=== PATIENT | female | born 1985 | race Caucasian/White ===

== ENCOUNTER 2022-05-14 21:25 | Inpatient (IN) | payer MEDICAID, OTHER ==
[2022-05-14 21:43] LABS: Actual Bicarbonate (HCO3v) 3 mEq/L (22-28); Calcium, Ionized (venous) 1.34 mmol/L (1.16-1.32); Chloride (VBG) 91 mmol/L (98-106); Critical Notified Whom: DURRI; Hemoglobin (Hb) 12.7 g/dL (11.7-15.5); Potassium (VBG) 5.58 mmol/L (3.70-5.30); Puncture Site Other Site; Sodium 127.5 mmol/L (133-146); pH (venous) 6.74 (7.32-7.43)
[2022-05-14 21:48] LABS: Hemoglobin 11.6 g/dL (12.0-15.5); MDiff Complete? YES; Mean Corpuscular HGB CONC 31.4 g/dL (32.0-36.0); Mean Corpuscular Hemoglobin 30.5 pg (27.0-33.0); Mean Corpuscular Volume 97.1 fl (81.6-98.3); Mean Platelet Volume 10.6 fl (7.4-10.4); Platelet Count 466 10x3/uL (150-450); RBC Distribution Width 13.2 % (11.5-14.5); White Blood Cell (WBC) Count 39.1 10x3/uL (3.5-10.5)
[2022-05-14 21:55] LABS: Phosphorus 7.8 mg/dL (2.3-4.7)
[2022-05-14 21:57] LABS: Acetaminophen Less than 10.0 mcg/mL (10.0-30.0); Alcohol Less than 10 mg/dL (Less than 10); CK (CPK) 27 U/L (29-168); Magnesium 3.5 mg/dL (1.6-2.6); Salicylate Less than 8.0 mg/dL (15.0-30.0)
[2022-05-14 21:58] LABS: AST (SGOT) 9 U/L (5-34); Bilirubin, Total 0.2 mg/dL (0.2-1.2); Calcium 9.7 mg/dL (7.8-10.44); Chloride 88 mmol/L (98-107); Potassium 5.9 mmol/L (3.5-5.1); Sodium 124 mmol/L (136-145)
[2022-05-14 22:04] LABS: Bilirubin Neg (Negative); Blood, Urine 250 (Negative); Clarity Clear (Clear); Glucose, Urine (Dipstick) >=1000 mg/dL (Negative); Ketone, Urine 150 mg/dL (Negative); Leukocyte Negative (Negative); Nitrite Negative (Negative); Protein, Urine (Dipstick) 100 mg/dl (Neg-Trace); Urobilinogen Normal mg/dL (Less than 2)
[2022-05-14 22:06] LABS: Pregnancy Test - Urine (BHCG) Negative (Negative); Pregu Control Background? CLEAR/WHITE (CLR/WHITE); Pregu Control Bar Appear? YES (CONTROL BAR)
[2022-05-14] MEDS ORDERED: INSULIN REGULAR IN 0.9 % NACL 100 UNIT/100 ML BAG ONE (22:07)
[2022-05-14] MEDS ORDERED: Insulin Regular 300 UNITS/3 ML VIAL ONE (22:07)
[2022-05-14 22:11] LABS: Amphetamine Not Detected (NotDetected); Barbiturates Screen Not Detected (NotDetected); Benzodiazepine Screen Not Detected (NotDetected); Cocaine Metabolite Screen Not Detected (NotDetected); Methadone Not Detected (NotDetected); Methamphetamine Not Detected (NotDetected); Opiate Screen Not Detected (NotDetected); Oxycodone Screen Not Detected (NotDetected); Phencyclidine (PCP) Not Detected (NotDetected); THC/Cannabinoid Screen Not Detected (NotDetected); Tricyclic Screen Not Detected (NotDetected)
[2022-05-14] MEDS ORDERED: cefTRIAXone\\ROCEPHIN 2 GM VIAL ONE (22:12)
[2022-05-14 22:16] LABS: Bacteria/HPF 1+ HPF (None Seen); WBC/HPF 0-3 HPF (0-3)
[2022-05-14] MEDS ORDERED: SODIUM BICARBONATE IV SCH (22:30)
[2022-05-14] MEDS ORDERED: STERILE WATER IV SCH (22:30)
[2022-05-14 22:35] LABS: ALT (SGPT) 13 U/L (8-55); Alkaline Phosphatase 140 U/L (40-110); BUN (Urea Nitrogen) 61 mg/dL (7.0-18.7); Calc. Creatinine Clearance 0 mL/min (70-130); Carbon Dioxide Less than 8 mmol/L (22-29); Estimated GFR 23
[2022-05-14 22:40] LABS: Band 6 % (5-11); Lymphocytes 6 % (21-51); Metamyelocyte 5 % (0-0); Monocytes 4 % (0-10); Neutrophil 78 % (42-75); Reactive Lymphocytes 1 % (0-10)
[2022-05-14 22:41] LABS: SARS-CoV-2 NAA Rapid Test Not Detected (NotDetected)
[2022-05-14 22:41] LABS: Platelet Morphology Comment Appears Increased
[2022-05-14 22:51] LABS: Glucose POC Confirmation 738 mg/dl (70-105)
[2022-05-14 22:52] LABS: Glucose 883 mg/dL (70-105)
[2022-05-14] MEDS ORDERED: Cefepime 2 GM VIAL ONE (23:44)
[2022-05-14] MEDS ORDERED: Sodium Chloride 0.9% 1,000 ML IV SCH (23:45)
[2022-05-14] MEDS ORDERED: NS 0.9% w/ 20 MEQ KCL 1,000 ML IV PRN (23:53)
[2022-05-14] MEDS ORDERED: Dextrose 5 %-0.45 % NaCl 1,000 ML IV PRN (23:53)
[2022-05-14] MEDS ORDERED: Sodium Chloride 0.9% 1,000 ML IV PRN ×4 (23:53)
[2022-05-14] MEDS ORDERED: Electrolyte Replacement Protocol IVPB PRN (23:53)
[2022-05-15 00:11] LABS: Glucose POC Confirmation 704 mg/dl (70-105)
[2022-05-15] MEDS ORDERED: Vancomycin HCl 1 GM in Sodium Chloride 0.9% 250 ML 250 ML IVPB SCH (00:30)
[2022-05-15 00:38] LABS: BUN (Urea Nitrogen) 57 mg/dL (7.0-18.7); Calc. Creatinine Clearance 0 mL/min (70-130); Calcium 7.1 mg/dL (7.8-10.44); Carbon Dioxide Less than 8 mmol/L (22-29); Chloride 103 mmol/L (98-107); Estimated GFR 36; Glucose 713 mg/dL (70-105); Magnesium 2.4 mg/dL (1.6-2.6); Potassium 4.2 mmol/L (3.5-5.1); Sodium 132 mmol/L (136-145)
[2022-05-15 00:39] LABS: Phosphorus 5.1 mg/dL (2.3-4.7)
[2022-05-15] MEDS ORDERED: NS 0.9% w/ 20 MEQ KCL 0 ML ONE (00:46)
[2022-05-15] MEDS: NS 0.9% w/ 20 MEQ KCL 1,000 ML IV PRN ×2 (00:49→04:58)
[2022-05-15] MEDS ORDERED: Calcium Gluconate 4.6 MEQ in Sodium Chloride 0.9% 100 ML IVPB SCH (01:00)
[2022-05-15] MEDS ORDERED: Cefepime 2 GM in Sodium Chloride 0.9% 100 ML IVPB SCH (01:00)
[2022-05-15] MEDS ORDERED: Calcium Gluc 4.6 MEQ/10 ML (100 MG/ML) ONE (01:04)
[2022-05-15 01:15] LABS: Glucose 700 mg/dL (70-105)
[2022-05-15 02:34] LABS: Glucose POC Confirmation 643 mg/dl (70-105)
[2022-05-15] MEDS ORDERED: Lorazepam 2 MG/ML VIAL ONE (04:18)
[2022-05-15] MEDS ORDERED: Ondansetron PF 4 MG/2 ML Vial ONE (04:18)
[2022-05-15] MEDS: Lorazepam 2 MG/ML VIAL SLOW IVP PRN ×3 (04:24→20:08)
[2022-05-15] MEDS ORDERED: NS 0.9% w/ 20 MEQ KCL 1,000 ML ONE (05:00)
[2022-05-15 06:03] LABS: BUN (Urea Nitrogen) 57 mg/dL (7.0-18.7); Calc. Creatinine Clearance 0 mL/min (70-130); Calcium 7.8 mg/dL (7.8-10.44); Chloride 112 mmol/L (98-107); Estimated GFR 35; Glucose 451 mg/dL (70-105); Magnesium 2.3 mg/dL (1.6-2.6); Potassium 3.8 mmol/L (3.5-5.1); Sodium 137 mmol/L (136-145)
[2022-05-15 06:04] LABS: Mean Corpuscular HGB CONC 33.4 g/dL (32.0-36.0); Mean Corpuscular Volume 92.6 fl (81.6-98.3); Mean Platelet Volume 10.3 fl (7.4-10.4); Platelet Count 284 10x3/uL (150-450); Red Blood Cell (RBC) Count 3.23 10x6/uL (3.90-5.03); White Blood Cell (WBC) Count 22.2 10x3/uL (3.5-10.5)
[2022-05-15 06:06] LABS: Carbon Dioxide Less than 8 mmol/L (22-29)
[2022-05-15 06:10] LABS: Troponin I 0.093 ng/mL (< 0.028)
[2022-05-15] MEDS ORDERED: Insulin Regular 300 UNITS/3 ML VIAL IVP SCH (06:15)
[2022-05-15 06:23] LABS: Actual Bicarbonate (HCO3v) 7 mEq/L (22-28); Base Excess -18.8 mEq/L (-2.0 to +3.0); Calcium, Ionized (venous) 1.09 mmol/L (1.16-1.32); Chloride (VBG) 112 mmol/L (98-106); Potassium (VBG) 3.94 mmol/L (3.70-5.30); Puncture Site Other Site; Sodium 137.3 mmol/L (133-146)
[2022-05-15 06:32] LABS: RapidComm Collect By CBN
[2022-05-15] MEDS ORDERED: Potassium Phosphate 22 MMOL in Sodium Chloride 0.9% 250 ML 250 ML IVPB SCH (07:30)
[2022-05-15 07:31] LABS: MDiff Complete? YES
[2022-05-15 07:32] LABS: Lymphocytes 11 % (21-51); Monocytes 7 % (0-10); Neutrophil 82 % (42-75)
[2022-05-15 07:33] LABS: Platelet Morphology Comment Appears Adequate; RBC Morphology Normal
[2022-05-15] MEDS: Pantoprazole 40 MG VIAL IVP SCH (08:54)
[2022-05-15] MEDS: Enoxaparin Sodium 40 MG/0.4 ML SYRINGE SC SCH (08:55)
[2022-05-15 09:29] LABS: Anion Gap 19 mmol/L (10-20); BUN (Urea Nitrogen) 56 mg/dL (7.0-18.7); Calc. Creatinine Clearance 0 mL/min (70-130); Calcium 7.9 mg/dL (7.8-10.44); Chloride 118 mmol/L (98-107); Estimated GFR 37; Glucose 251 mg/dL (70-105); Potassium 3.7 mmol/L (3.5-5.1); Sodium 142 mmol/L (136-145)
[2022-05-15] MEDS ORDERED: Lactated Ringer's 500 ML IV SCH (09:30)
[2022-05-15 09:37] LABS: Troponin I 0.178 ng/mL (< 0.028)
[2022-05-15 09:41] LABS: Carbon Dioxide 9 mmol/L (22-29); Phosphorus 1.2 mg/dL (2.3-4.7)
[2022-05-15] MEDS: D5 1/2 NS w/20 mEq KCL 1,000 ML IV PRN ×3 (09:45→18:31)
[2022-05-15 10:07] LABS: INR-International Normal Ratio 0.9; PTT 28.8 sec (22.0-33.0); Prothrombin Time 9.9 sec (9.5-12.1)
[2022-05-15 10:22] LABS: Syphilis Antibody Nonreactive (Nonreactive); Syphilis Antibody Index 0.14 S/CO (<1.00 Non-Reactive)
[2022-05-15 10:23] LABS: HIV (1/2) Antibody/Antigen Non-Reactive (NonReactive)
[2022-05-15 10:41] VITALS: BMI 22.1
[2022-05-15] MEDS ORDERED: PHOS-NAK 1 PKT PACK PO SCH (11:00)
[2022-05-15] MEDS: Nicotine 14 MG PATCH TD SCH (11:27)
[2022-05-15] MEDS ORDERED: Ondansetron ODT 4 MG TAB PO PRN (11:47)
[2022-05-15] MEDS ORDERED: Ondansetron PF 4 MG/2 ML Vial IVP PRN (11:47)
[2022-05-15 12:37] LABS: Hemoglobin A1c Greater than 14.0 % (4.0-6.0)
[2022-05-15] MEDS ORDERED: Lactated Ringer's 1,000 ML IV SCH (12:45)
[2022-05-15 13:12] LABS: Anion Gap 14 mmol/L (10-20); BUN (Urea Nitrogen) 52 mg/dL (7.0-18.7); Calc. Creatinine Clearance 40 mL/min (70-130); Calcium 7.6 mg/dL (7.8-10.44); Carbon Dioxide 12 mmol/L (22-29); Chloride 119 mmol/L (98-107); Estimated GFR 42; Glucose 255 mg/dL (70-105); Potassium 3.6 mmol/L (3.5-5.1); Sodium 141 mmol/L (136-145)
[2022-05-15] MEDS: Cefepime 2 GM in Sodium Chloride 0.9% 100 ML IVPB SCH ×2 (13:42)
[2022-05-15] MEDS: NACL IVPB SCH (14:58)
[2022-05-15] MEDS: INSULIN REGULAR IVPB SCH (14:58)
[2022-05-15 15:53] LABS: Anion Gap 13 mmol/L (10-20); BUN (Urea Nitrogen) 46 mg/dL (7.0-18.7); Calc. Creatinine Clearance 42 mL/min (70-130); Calcium 7.4 mg/dL (7.8-10.44); Carbon Dioxide 13 mmol/L (22-29); Chloride 119 mmol/L (98-107); Estimated GFR 44; Glucose 266 mg/dL (70-105); Potassium 3.5 mmol/L (3.5-5.1); Sodium 141 mmol/L (136-145)
[2022-05-15] MEDS ORDERED: ADMIXTURE FEE IVPB SCH (20:00)
[2022-05-15] MEDS ORDERED: LORAZEPAM IVPB SCH (20:00)
[2022-05-15] MEDS ORDERED: SODIUM CHLORIDE IVPB SCH (20:00)
[2022-05-15 20:27] LABS: Bilirubin Neg (Negative); Blood, Urine 250 (Negative); Clarity Clear (Clear); Glucose, Urine (Dipstick) 250 mg/dL (Negative); Ketone, Urine Negative (Negative); Leukocyte 500 (Negative); Nitrite Negative (Negative); Protein, Urine (Dipstick) 100 mg/dl (Neg-Trace); Urobilinogen Normal mg/dL (Less than 2)
[2022-05-15 20:54] LABS: Bacteria/HPF 1+ HPF (None Seen); Squamous Epithelial 0-3 HPF (0-3)
[2022-05-15] MEDS ORDERED: Furosemide 40 MG/4 ML VIAL SLOW IVP SCH (21:00)
[2022-05-15] MEDS ORDERED: Morphine 2 MG/ML VIAL SLOW IVP SCH (21:00)
[2022-05-15 21:21] LABS: Anion Gap 11 mmol/L (10-20); BUN (Urea Nitrogen) 40 mg/dL (7.0-18.7); Calc. Creatinine Clearance 45 mL/min (70-130); Calcium 7.5 mg/dL (7.8-10.44); Carbon Dioxide 11 mmol/L (22-29); Chloride 122 mmol/L (98-107); Estimated GFR 48; Glucose 128 mg/dL (70-105); Potassium 3.3 mmol/L (3.5-5.1); Sodium 141 mmol/L (136-145)
[2022-05-15] MEDS: Potassium Chloride 20 MEQ in Premix Bag 1 BAG IVPB SCH (21:59)
[2022-05-15] MEDS ORDERED: Potassium Chloride 20 MEQ in Premix Bag 1 BAG IVPB SCH (22:15)
[2022-05-15] MEDS ORDERED: Dextrose 10% in Water 1,000 ML IV SCH (22:15)
[2022-05-15] MEDS ORDERED: D5 0.9% NS w/ 20 mEq KCl 1,000 ML IV SCH (22:15)
[2022-05-15] MEDS ORDERED: D5 0.9% NS w/ 20 mEq KCl 1,000 ML ONE ×3 (22:34→22:36)
[2022-05-15] MEDS: Acetaminophen 650 MG Suppository PR PRN (23:30)
[2022-05-15] MEDS: Thiamine HCl 200 MG/2 ML VIAL SLOW IVP SCH (23:44)
[2022-05-15] MEDS: Vancomycin HCl 1 GM in Sodium Chloride 0.9% 250 ML 250 ML IVPB SCH (23:44)
[2022-05-16 00:22] LABS: Anion Gap 15 mmol/L (10-20); BUN (Urea Nitrogen) 38 mg/dL (7.0-18.7); Calc. Creatinine Clearance 44 mL/min (70-130); Calcium 7.4 mg/dL (7.8-10.44); Carbon Dioxide 10 mmol/L (22-29); Chloride 121 mmol/L (98-107); Estimated GFR 46; Glucose 185 mg/dL (70-105); Sodium 143 mmol/L (136-145)
[2022-05-16 00:23] LABS: Potassium 2.8 mmol/L (3.5-5.1)
[2022-05-16] MEDS: Potassium Chloride 20 MEQ in Premix Bag 1 BAG IVPB SCH ×3 (00:35→15:46)
[2022-05-16] MEDS: Cefepime 2 GM in Sodium Chloride 0.9% 100 ML IVPB SCH ×2 (00:35→13:40)
[2022-05-16] MEDS ORDERED: D5 LR w/20 mEq KCL 1,000 ML IV SCH (01:00)
[2022-05-16] MEDS ORDERED: CALCIUM GLUC 1GM/NS 50ML 1 GM in Premix Bag 1 BAG IVPB SCH ×2 (01:00→06:45)
[2022-05-16] MEDS ORDERED: Potassium Chloride 20 MEQ in Lactated Ringer's 1,000 ML IV SCH (01:00)
[2022-05-16 01:08] LABS: Magnesium 1.4 mg/dL (1.6-2.6)
[2022-05-16] MEDS ORDERED: Magnesium 2 GM/50 ML(in water) 2 GM in Premix Bag 1 BAG IVPB SCH ×2 (01:30→06:30)
[2022-05-16 05:11] LABS: Troponin I 0.145 ng/mL (< 0.028)
[2022-05-16] MEDS ORDERED: Furosemide 40 MG/4 ML VIAL SLOW IVP SCH ×2 (05:45→19:45)
[2022-05-16 06:15] LABS: Anion Gap 12 mmol/L (10-20); BUN (Urea Nitrogen) 40 mg/dL (7.0-18.7); Calc. Creatinine Clearance 45 mL/min (70-130); Calcium 7.6 mg/dL (7.8-10.44); Carbon Dioxide 13 mmol/L (22-29); Chloride 119 mmol/L (98-107); Estimated GFR 48; Glucose 298 mg/dL (70-105); Magnesium 1.7 mg/dL (1.6-2.6); Potassium 3.8 mmol/L (3.5-5.1); Sodium 140 mmol/L (136-145)
[2022-05-16] MEDS ORDERED: 1/2 NS w/KCL 20 mEq 1,000 ML IV SCH (06:30)
[2022-05-16 06:38] LABS: Phosphorus 1.2 mg/dL (2.3-4.7)
[2022-05-16] MEDS ORDERED: Potassium Phosphate 15 MMOL in Sodium Chloride 0.9% 100 ML IVPB SCH (07:30)
[2022-05-16] MEDS ORDERED: Calcium Gluconate 4.6 MEQ in Sodium Chloride 0.9% 100 ML IVPB SCH (07:30)
[2022-05-16] MEDS ORDERED: Dexmedetomidine In 0.9 % NaCl 100 ML ONE (08:13)
[2022-05-16] MEDS: Pantoprazole 40 MG VIAL IVP SCH (08:28)
[2022-05-16] MEDS: Enoxaparin Sodium 40 MG/0.4 ML SYRINGE SC SCH (08:28)
[2022-05-16] MEDS ORDERED: Thiamine 100 MG TAB PO SCH (09:00)
[2022-05-16] MEDS ORDERED: Sodium Bicarbonate 150 MEQ in Dextrose 5% in Water 1,000 ML IV SCH (10:00)
[2022-05-16] MEDS: D5 1/2 NS w/20 mEq KCL 1,000 ML IV SCH ×2 (10:06→18:05)
[2022-05-16] MEDS: INSULIN REGULAR IVPB SCH (10:12)
[2022-05-16] MEDS: NACL IVPB SCH (10:12)
[2022-05-16] MEDS: Thiamine HCl 200 MG/2 ML VIAL SLOW IVP SCH ×2 (11:46→22:02)
[2022-05-16] MEDS: Nicotine 14 MG PATCH TD SCH (11:47)
[2022-05-16 11:48] LABS: #Basophils 0.1 10x3/uL (0.0-0.2); #Monocytes 1.1 10x3/uL (0.0-1.1); #Neutrophils 17.8 10x3/uL (1.5-8.4); %Basophils 0.2 % (0.0-2.0); %Eosinophils 0.1 % (0.0-6.0); %Lymphocytes 6.5 % (18.0-47.0); %Monocytes 5.3 % (0.0-10.0); %Neutrophils 85.5 % (40.0-75.0); Hemoglobin 8.1 g/dL (12.0-15.5); Mean Corpuscular HGB CONC 35.8 g/dL (32.0-36.0); Mean Corpuscular Hemoglobin 30.5 pg (27.0-33.0); Mean Platelet Volume 10.2 fl (7.4-10.4); Platelet Count 136 10x3/uL (150-450); RBC Distribution Width 13.3 % (11.5-14.5); Red Blood Cell (RBC) Count 2.66 10x6/uL (3.90-5.03); White Blood Cell (WBC) Count 20.9 10x3/uL (3.5-10.5)
[2022-05-16 12:02] LABS: Anion Gap 14 mmol/L (10-20); BUN (Urea Nitrogen) 37 mg/dL (7.0-18.7); Calc. Creatinine Clearance 46 mL/min (70-130); Calcium 8.1 mg/dL (7.8-10.44); Carbon Dioxide 15 mmol/L (22-29); Chloride 119 mmol/L (98-107); Estimated GFR 49; Glucose 113 mg/dL (70-105); Potassium 3.5 mmol/L (3.5-5.1); Sodium 144 mmol/L (136-145)
[2022-05-16 12:10] LABS: Phosphorus 1.4 mg/dL (2.3-4.7)
[2022-05-16 12:35] LABS: Band 27 % (5-11); Lymphocytes 6 % (21-51); Monocytes 5 % (0-10); Neutrophil 62 % (42-75)
[2022-05-16 12:38] LABS: Dohle Bodies SLIGHT; Platelet Morphology Comment Appears Decreased; Toxic Granulation SLIGHT; Vacuoles SLIGHT
[2022-05-16] MEDS: Dexmedetomidine In 0.9 % NaCl 100 ML IVPB SCH ×2 (15:46→20:01)
[2022-05-16] MEDS ORDERED: Midazolam HCl 2 mg/2 ml Vial ONE (19:00)
[2022-05-16] MEDS ORDERED: hydrALAZINE 20 MG/ML VIAL SLOW IVP PRN (19:03)
[2022-05-16] MEDS ORDERED: Dextrose 5% in Water 1,000 ML IV PRN (19:06)
[2022-05-16] MEDS ORDERED: Midazolam HCl 2 mg/2 ml Vial IVP ONE (19:45)
[2022-05-16 19:46] LABS: Lactic Acid 1.2 mmol/L (0.5-2.2)
[2022-05-16 19:49] LABS: Anion Gap 12 mmol/L (10-20); BUN (Urea Nitrogen) 35 mg/dL (7.0-18.7); Calc. Creatinine Clearance 49 mL/min (70-130); Calcium 7.9 mg/dL (7.8-10.44); Carbon Dioxide 17 mmol/L (22-29); Chloride 115 mmol/L (98-107); Estimated GFR 53; Glucose 170 mg/dL (70-105); Potassium 3.7 mmol/L (3.5-5.1); Sodium 140 mmol/L (136-145)
[2022-05-16 19:55] LABS: Troponin I 0.111 ng/mL (< 0.028)
[2022-05-16] MEDS: Lantus 1000 UNITS/10 ML VIAL SC SCH (20:01)
[2022-05-16 20:26] LABS: Base Excess (BEa) -5.2 mEq/L (-2.0 to +3.0); CO2 Tension 27.1 mmHg (35.0-45.0); Calcium, Ionized (arterial) 1.14 mmol/L (1.12-1.30); Carboxyhemoglobin (COHb) 1.1 gm% (0.0-3.0); Hemoglobin (Hb) 8.9 g/dL (12.0-16.0); O2 Tension (PaO2), arterial 90.3 mmHg (80.0-100.0); Potassium - ABG Lab 3.7 mmol/L (3.70-5.30); Puncture Site RRA; pH, Arterial 7.44 (7.35-7.45)
[2022-05-16 20:28] LABS: ALV-art Gradient 588.825 mmHg (0-20)
[2022-05-16] MEDS: Acetaminophen 650 MG Suppository PR PRN (22:53)
[2022-05-16 23:49] LABS: Troponin I 0.148 ng/mL (< 0.028)
[2022-05-17] MEDS: HumaLOG 300 UNITS/3 ML VIAL SC PRN ×4 (00:24→21:03)
[2022-05-17] MEDS: Dexmedetomidine In 0.9 % NaCl 100 ML IVPB SCH ×4 (00:26→19:23)
[2022-05-17] MEDS: Vancomycin HCl 1 GM in Sodium Chloride 0.9% 250 ML 250 ML IVPB SCH (00:45)
[2022-05-17] MEDS ORDERED: Morphine 2 MG/ML VIAL SLOW IVP SCH (01:15)
[2022-05-17] MEDS: Cefepime 2 GM in Sodium Chloride 0.9% 100 ML IVPB SCH ×2 (01:33→12:49)
[2022-05-17] MEDS: D5 1/2 NS w/20 mEq KCL 1,000 ML IV SCH (02:16)
[2022-05-17 05:38] LABS: Magnesium 1.9 mg/dL (1.6-2.6)
[2022-05-17 05:40] LABS: Troponin I 0.162 ng/mL (< 0.028)
[2022-05-17 07:34] LABS: Hemoglobin 8.8 g/dL (12.0-15.5); Mean Corpuscular HGB CONC 36.7 g/dL (32.0-36.0); Mean Corpuscular Hemoglobin 30.2 pg (27.0-33.0); Mean Corpuscular Volume 82.5 fl (81.6-98.3); Mean Platelet Volume 10.7 fl (7.4-10.4); Platelet Count 129 10x3/uL (150-450); RBC Distribution Width 13.7 % (11.5-14.5); Red Blood Cell (RBC) Count 2.91 10x6/uL (3.90-5.03); White Blood Cell (WBC) Count 24.8 10x3/uL (3.5-10.5)
[2022-05-17] MEDS: Furosemide 40 MG/4 ML VIAL SLOW IVP SCH (08:09)
[2022-05-17] MEDS: Enoxaparin Sodium 40 MG/0.4 ML SYRINGE SC SCH (08:10)
[2022-05-17] MEDS: Pantoprazole 40 MG VIAL IVP SCH (08:10)
[2022-05-17] MEDS ORDERED: Magnesium 2 GM/50 ML(in water) 2 GM in Premix Bag 1 BAG IVPB SCH (08:30)
[2022-05-17 09:14] LABS: Anion Gap 13 mmol/L (10-20); BUN (Urea Nitrogen) 35 mg/dL (7.0-18.7); Calc. Creatinine Clearance 44 mL/min (70-130); Calcium 7.7 mg/dL (7.8-10.44); Carbon Dioxide 17 mmol/L (22-29); Chloride 115 mmol/L (98-107); Estimated GFR 46; Glucose 218 mg/dL (70-105); Phosphorus Less than 1.0 mg/dL (2.3-4.7); Potassium 3.1 mmol/L (3.5-5.1); Sodium 142 mmol/L (136-145)
[2022-05-17] MEDS: Nicotine 14 MG PATCH TD SCH (10:18)
[2022-05-17] MEDS: Thiamine HCl 200 MG/2 ML VIAL SLOW IVP SCH ×2 (10:18→23:28)
[2022-05-17 10:37] LABS: MDiff Complete? YES; Manual Diff?? YES
[2022-05-17] MEDS ORDERED: Potassium Phosphate 30 MMOL in Sodium Chloride 0.9% 250 ML 250 ML IVPB SCH (11:00)
[2022-05-17 11:21] LABS: Band 17 % (5-11); Lymphocytes 2 % (21-51); Monocytes 5 % (0-10); Neutrophil 76 % (42-75)
[2022-05-17 11:22] LABS: Giant Platelets SLIGHT; Large Platelets SLIGHT; Platelet Morphology Comment Appears Adequate
[2022-05-17] MEDS ORDERED: Furosemide 40 MG/4 ML VIAL SLOW IVP SCH (15:00)
[2022-05-17 17:54] LABS: Phosphorus 3.1 mg/dL (2.3-4.7)
[2022-05-17] MEDS ORDERED: Haloperidol Lactate 5 MG/ML VIAL SLOW IVP PRN (18:34)
[2022-05-17 20:27] LABS: Potassium 2.7 mmol/L (3.5-5.1)
[2022-05-17] MEDS ORDERED: Gabapentin 300 MG CAP PO SCH (21:00)
[2022-05-17] MEDS: Lantus 1000 UNITS/10 ML VIAL SC SCH (21:02)
[2022-05-17] MEDS: Potassium Chloride 20 MEQ in Premix Bag 1 BAG IVPB SCH ×2 (21:03→23:28)
[2022-05-17] MEDS ORDERED: WATER IVPB SCH ×2 (23:59)
[2022-05-17] MEDS ORDERED: VANCOMYCIN HCL IVPB SCH ×2 (23:59)
[2022-05-17] MEDS ORDERED: DEXTROSE 5% IVPB SCH ×2 (23:59)
[2022-05-18 00:05] LABS: Vancomycin, Trough 19.1 ug/mL
[2022-05-18] MEDS: HumaLOG 300 UNITS/3 ML VIAL SC PRN ×6 (00:53→21:30)
[2022-05-18] MEDS: Potassium Chloride 20 MEQ in Premix Bag 1 BAG IVPB SCH ×4 (01:36→20:32)
[2022-05-18] MEDS ORDERED: Furosemide 20 MG/2 ML VIAL SLOW IVP SCH (02:45)
[2022-05-18] MEDS: Dexmedetomidine In 0.9 % NaCl 100 ML IVPB SCH (03:35)
[2022-05-18 04:16] LABS: Hemoglobin 8.7 g/dL (12.0-15.5); Mean Corpuscular HGB CONC 36.6 g/dL (32.0-36.0); Mean Corpuscular Hemoglobin 30.4 pg (27.0-33.0); Mean Corpuscular Volume 83.2 fl (81.6-98.3); Mean Platelet Volume 11.1 fl (7.4-10.4); Platelet Count 156 10x3/uL (150-450); RBC Distribution Width 13.6 % (11.5-14.5); Red Blood Cell (RBC) Count 2.86 10x6/uL (3.90-5.03); White Blood Cell (WBC) Count 27.5 10x3/uL (3.5-10.5)
[2022-05-18 04:17] LABS: Anion Gap 15 mmol/L (10-20); BUN (Urea Nitrogen) 32 mg/dL (7.0-18.7); Calc. Creatinine Clearance 41 mL/min (70-130); Calcium 7.8 mg/dL (7.8-10.44); Carbon Dioxide 21 mmol/L (22-29); Chloride 112 mmol/L (98-107); Estimated GFR 43; Glucose 235 mg/dL (70-105); Potassium 3.1 mmol/L (3.5-5.1); Sodium 145 mmol/L (136-145)
[2022-05-18] MEDS ORDERED: Magnesium 2 GM/50 ML(in water) 2 GM in Premix Bag 1 BAG IVPB SCH (04:30)
[2022-05-18 05:29] LABS: MDiff Complete? YES
[2022-05-18 05:43] LABS: Lymphocytes 4 % (21-51); Monocytes 6 % (0-10); Neutrophil 90 % (42-75)
[2022-05-18 05:45] LABS: Macrocytosis SLIGHT = 6-15 cells (100X) (0-5/hpf)
[2022-05-18 05:46] LABS: Platelet Morphology Comment Appears Adequate
[2022-05-18] MEDS ORDERED: Ventilator Sedation Protocol 1 EACH FS PRN (07:19)
[2022-05-18] MEDS ORDERED: Vecuronium 10 MG VIAL IVP PRN (07:22)
[2022-05-18] MEDS ORDERED: NOREPINEPHRINE 8 MG/250 ML-D5W 250 ML ONE (07:26)
[2022-05-18] MEDS ORDERED: DISCONTINUE PREVIOUS NARCOTIC PAIN MEDICATIONS AND BENZODIAZEPINES FS SCH (07:30)
[2022-05-18] MEDS ORDERED: Fentanyl BOLUS 250 ML IVPB PRN (07:30)
[2022-05-18] MEDS ORDERED: Morphine 2 MG/ML VIAL SLOW IVP PRN (07:30)
[2022-05-18] MEDS ORDERED: Propofol BOLUS 1,000 MG/100 ML VIAL IV PRN (07:30)
[2022-05-18] MEDS: Furosemide 40 MG/4 ML VIAL SLOW IVP SCH (07:43)
[2022-05-18] MEDS: Enoxaparin Sodium 40 MG/0.4 ML SYRINGE SC SCH (07:43)
[2022-05-18] MEDS: Propofol 1,000 MG/100 ML VIAL IV PRN ×3 (07:43→20:32)
[2022-05-18] MEDS: Pantoprazole 40 MG VIAL IVP SCH (07:44)
[2022-05-18] MEDS ORDERED: Vecuronium 10 MG VIAL ONE (07:49)
[2022-05-18] MEDS ORDERED: Meropenem 1 GM in Sodium Chloride 0.9% 100 ML IVPB SCH (08:00)
[2022-05-18] MEDS ORDERED: Potassium Chloride 20 MEQ in Premix Bag 1 BAG IVPB SCH (08:00)
[2022-05-18] MEDS ORDERED: Vecuronium 10 MG VIAL IV SCH (08:00)
[2022-05-18] MEDS: Lactated Ringer's 1,000 ML IV SCH ×2 (08:24→16:45)
[2022-05-18 09:11] LABS: Actual Bicarbonate (HCO3a) 19.4 mEq/L (22-28); Base Excess (BEa) -7.3 mEq/L (-2.0 to +3.0); CO2 Tension 45.1 mmHg (35.0-45.0); Carboxyhemoglobin (COHb) 1.2 gm% (0.0-3.0); Hemoglobin (Hb) 8.8 g/dL (12.0-16.0); O2 Tension (PaO2), arterial 88.1 mmHg (80.0-100.0); Potassium - ABG Lab 3.3 mmol/L (3.70-5.30); Puncture Site LRA; pH, Arterial 7.25 (7.35-7.45)
[2022-05-18 09:15] LABS: ALV-art Gradient 425.925 mmHg (0-20)
[2022-05-18] MEDS: NOREPINEPHRINE 8 MG/250 ML-D5W 250 ML IVPB SCH (09:30)
[2022-05-18] MEDS: Nicotine 14 MG PATCH TD SCH (10:35)
[2022-05-18] MEDS: Acetaminophen 650 MG Suppository PR PRN (10:35)
[2022-05-18] MEDS: Thiamine HCl 200 MG/2 ML VIAL SLOW IVP SCH ×2 (10:35→22:24)
[2022-05-18] MEDS: fentaNYL Citrate-0.9 % NaCl/PF 100 ML IVPB SCH (11:19)
[2022-05-18 11:35] LABS: Strep pneumo Urine Ag NEGATIVE (NEGATIVE)
[2022-05-18] MEDS ORDERED: Iopamidol 300 61% 100 ML VIAL FS ONE (12:50)
[2022-05-18] MEDS ORDERED: Meropenem 2 GM in Sodium Chloride 0.9% 100 ML IVPB SCH (14:00)
[2022-05-18] MEDS: Meropenem 1 GM in Sodium Chloride 0.9% 100 ML IVPB SCH (15:50)
[2022-05-18 16:32] LABS: Anion Gap 15 mmol/L (10-20); BUN (Urea Nitrogen) 32 mg/dL (7.0-18.7); Calc. Creatinine Clearance 38 mL/min (70-130); Calcium 7.9 mg/dL (7.8-10.44); Carbon Dioxide 20 mmol/L (22-29); Chloride 111 mmol/L (98-107); Estimated GFR 39; Glucose 240 mg/dL (70-105); Potassium 3.2 mmol/L (3.5-5.1); Sodium 143 mmol/L (136-145)
[2022-05-18] MEDS: Lantus 1000 UNITS/10 ML VIAL SC SCH (21:30)
[2022-05-18] MEDS: Lorazepam 2 MG/ML VIAL SLOW IVP PRN (22:22)
[2022-05-19] MEDS: Vancomycin HCl 750 MG in Dextrose 5% in Water 250 ML IVPB SCH (00:24)
[2022-05-19] MEDS: HumaLOG 300 UNITS/3 ML VIAL SC PRN ×5 (00:26→20:10)
[2022-05-19] MEDS: fentaNYL Citrate-0.9 % NaCl/PF 100 ML IVPB SCH ×2 (00:41→17:34)
[2022-05-19] MEDS: Lactated Ringer's 1,000 ML IV SCH ×3 (03:19→22:46)
[2022-05-19] MEDS: Propofol 1,000 MG/100 ML VIAL IV PRN ×4 (03:30→22:46)
[2022-05-19 04:16] LABS: Anion Gap 11 mmol/L (10-20); BUN (Urea Nitrogen) 29 mg/dL (7.0-18.7); Calc. Creatinine Clearance 39 mL/min (70-130); Calcium 7.1 mg/dL (7.8-10.44); Carbon Dioxide 22 mmol/L (22-29); Chloride 112 mmol/L (98-107); Estimated GFR 41; Glucose 312 mg/dL (70-105); Hemoglobin 6.8 g/dL (12.0-15.5); Mean Corpuscular HGB CONC 35.2 g/dL (32.0-36.0); Mean Corpuscular Hemoglobin 30.2 pg (27.0-33.0); Mean Corpuscular Volume 85.8 fl (81.6-98.3); Mean Platelet Volume 10.7 fl (7.4-10.4); Platelet Count 130 10x3/uL (150-450); Potassium 3.3 mmol/L (3.5-5.1); Red Blood Cell (RBC) Count 2.25 10x6/uL (3.90-5.03); Sodium 142 mmol/L (136-145); White Blood Cell (WBC) Count 24.9 10x3/uL (3.5-10.5)
[2022-05-19] MEDS: Potassium Chloride 20 MEQ in Premix Bag 1 BAG IVPB SCH ×2 (05:31→08:11)
[2022-05-19 06:51] LABS: MDiff Complete? YES
[2022-05-19 06:54] LABS: Band 2 % (5-11); Lymphocytes 7 % (21-51); Monocytes 8 % (0-10); Neutrophil 83 % (42-75)
[2022-05-19 06:55] LABS: Anisocytosis MODERATE=16-30 cells (100X) (0-5/hpf); Hypochromia SLIGHT = 6-15 cells (100X) (0-5/hpf)
[2022-05-19 06:56] LABS: Platelet Morphology Comment Appears Decreased; Schistocytes SLIGHT = 2-5 cells (100X) (0-1/hpf)
[2022-05-19] MEDS: Meropenem 1 GM in Sodium Chloride 0.9% 100 ML IVPB SCH ×2 (08:11→16:22)
[2022-05-19] MEDS: Pantoprazole 40 MG VIAL IVP SCH (08:11)
[2022-05-19 08:13] LABS: Actual Bicarbonate (HCO3a) 19.9 mEq/L (22-28); Base Excess (BEa) -3.8 mEq/L (-2.0 to +3.0); CO2 Tension 30.8 mmHg (35.0-45.0); Calcium, Ionized (arterial) 1.11 mmol/L (1.12-1.30); Carboxyhemoglobin (COHb) 1.6 gm% (0.0-3.0); Hemoglobin (Hb) 7.9 g/dL (12.0-16.0); O2 Tension (PaO2), arterial 81.1 mmHg (80.0-100.0); Potassium - ABG Lab 3.5 mmol/L (3.70-5.30); Puncture Site RRA; pH, Arterial 7.43 (7.35-7.45)
[2022-05-19] MEDS: Enoxaparin Sodium 40 MG/0.4 ML SYRINGE SC SCH (10:06)
[2022-05-19] MEDS: Thiamine HCl 200 MG/2 ML VIAL SLOW IVP SCH ×2 (12:17→22:46)
[2022-05-19] MEDS: Nicotine 14 MG PATCH TD SCH (12:18)
[2022-05-19] MEDS: NOREPINEPHRINE 8 MG/250 ML-D5W 250 ML IVPB SCH (12:18)
[2022-05-19 13:20] LABS: Hemoglobin 8.4 g/dL (12.0-15.5)
[2022-05-19] MEDS: Lantus 1000 UNITS/10 ML VIAL SC SCH (20:09)
[2022-05-20] MEDS: HumaLOG 300 UNITS/3 ML VIAL SC PRN ×5 (00:57→22:21)
[2022-05-20] MEDS: Vancomycin HCl 750 MG in Dextrose 5% in Water 250 ML IVPB SCH (00:59)
[2022-05-20] MEDS: Propofol 1,000 MG/100 ML VIAL IV PRN ×3 (04:21→18:03)
[2022-05-20 05:00] LABS: Anion Gap 14 mmol/L (10-20); BUN (Urea Nitrogen) 32 mg/dL (7.0-18.7); Calc. Creatinine Clearance 33 mL/min (70-130); Calcium 7.4 mg/dL (7.8-10.44); Carbon Dioxide 20 mmol/L (22-29); Chloride 110 mmol/L (98-107); Estimated GFR 33; Glucose 357 mg/dL (70-105); Potassium 4.1 mmol/L (3.5-5.1); Sodium 140 mmol/L (136-145)
[2022-05-20 05:28] LABS: Base Excess (BEa) -3.7 mEq/L (-2.0 to +3.0); CO2 Tension 36.3 mmHg (35.0-45.0); Calcium, Ionized (arterial) 1.12 mmol/L (1.12-1.30); Carboxyhemoglobin (COHb) 1.3 gm% (0.0-3.0); Critical Notified By: CP.PH; Hemoglobin (Hb) 8.3 g/dL (12.0-16.0); O2 Tension (PaO2), arterial 120.2 mmHg (80.0-100.0); Potassium - ABG Lab 3.6 mmol/L (3.70-5.30); Puncture Site RRA; RapidComm Collect By CP.PH; pH, Arterial 7.38 (7.35-7.45)
[2022-05-20 05:52] LABS: Hemoglobin 7.5 g/dL (12.0-15.5); Mean Corpuscular HGB CONC 34.2 g/dL (32.0-36.0); Mean Corpuscular Volume 87.6 fl (81.6-98.3); Mean Platelet Volume 11.4 fl (7.4-10.4); Platelet Count 77 10x3/uL (150-450); RBC Distribution Width 16.1 % (11.5-14.5); White Blood Cell (WBC) Count 19.3 10x3/uL (3.5-10.5)
[2022-05-20 06:57] LABS: MDiff Complete? YES
[2022-05-20 07:00] LABS: Lymphocytes 12 % (21-51); Monocytes 4 % (0-10); Neutrophil 84 % (42-75)
[2022-05-20 07:04] LABS: Anisocytosis SLIGHT = 6-15 cells (100X) (0-5/hpf); Hypochromia SLIGHT = 6-15 cells (100X) (0-5/hpf)
[2022-05-20 07:05] LABS: Platelet Morphology Comment Appears Decreased
[2022-05-20] MEDS: Meropenem 1 GM in Sodium Chloride 0.9% 100 ML IVPB SCH (08:20)
[2022-05-20] MEDS: Enoxaparin Sodium 40 MG/0.4 ML SYRINGE SC SCH (08:22)
[2022-05-20] MEDS: Pantoprazole 40 MG VIAL IVP SCH (08:22)
[2022-05-20] MEDS: fentaNYL Citrate-0.9 % NaCl/PF 100 ML IVPB SCH ×2 (08:23→21:00)
[2022-05-20] MEDS: Lactated Ringer's 1,000 ML IV SCH (11:24)
[2022-05-20] MEDS: Nicotine 14 MG PATCH TD SCH (11:41)
[2022-05-20] MEDS: Thiamine HCl 200 MG/2 ML VIAL SLOW IVP SCH ×2 (11:41→21:34)
[2022-05-20] MEDS ORDERED: Meropenem 1 GM in Sodium Chloride 0.9% 100 ML IVPB SCH (21:00)
[2022-05-20] MEDS: Acetaminophen 325 MG TAB PO PRN (22:04)
[2022-05-20] MEDS: Lantus 1000 UNITS/10 ML VIAL SC SCH (22:20)
[2022-05-20 23:20] LABS: Vancomycin, Trough 17.2 ug/mL
[2022-05-21] MEDS: Vancomycin HCl 750 MG in Dextrose 5% in Water 250 ML IVPB SCH ×2 (00:39→23:32)
[2022-05-21] MEDS: HumaLOG 300 UNITS/3 ML VIAL SC PRN ×6 (00:40→19:48)
[2022-05-21] MEDS: Propofol 1,000 MG/100 ML VIAL IV PRN ×4 (02:25→22:55)
[2022-05-21 05:39] LABS: Hemoglobin 7.7 g/dL (12.0-15.5); Mean Corpuscular HGB CONC 34.2 g/dL (32.0-36.0); Mean Corpuscular Hemoglobin 30.1 pg (27.0-33.0); Mean Corpuscular Volume 87.9 fl (81.6-98.3); Mean Platelet Volume 12.4 fl (7.4-10.4); Platelet Count 72 10x3/uL (150-450); Red Blood Cell (RBC) Count 2.56 10x6/uL (3.90-5.03); White Blood Cell (WBC) Count 22.6 10x3/uL (3.5-10.5)
[2022-05-21 05:42] LABS: Anion Gap 14 mmol/L (10-20); BUN (Urea Nitrogen) 37 mg/dL (7.0-18.7); Calc. Creatinine Clearance 30 mL/min (70-130); Calcium 7.5 mg/dL (7.8-10.44); Carbon Dioxide 19 mmol/L (22-29); Chloride 108 mmol/L (98-107); Estimated GFR 29; Glucose 437 mg/dL (70-105); Potassium 4.2 mmol/L (3.5-5.1); Sodium 137 mmol/L (136-145)
[2022-05-21 06:40] LABS: MDiff Complete? YES
[2022-05-21 06:44] LABS: Band 7 % (5-11); Eosinophils 4 % (0-10); Lymphocytes 13 % (21-51); Monocytes 3 % (0-10); Neutrophil 73 % (42-75)
[2022-05-21 06:47] LABS: Anisocytosis SLIGHT = 6-15 cells (100X) (0-5/hpf); Hypochromia SLIGHT = 6-15 cells (100X) (0-5/hpf); Platelet Morphology Comment Appears Decreased
[2022-05-21 06:47] LABS: Actual Bicarbonate (HCO3a) 19.6 mEq/L (22-28); Base Excess (BEa) -4.9 mEq/L (-2.0 to +3.0); CO2 Tension 33.8 mmHg (35.0-45.0); Calcium, Ionized (arterial) 1.14 mmol/L (1.12-1.30); Carboxyhemoglobin (COHb) 1.4 gm% (0.0-3.0); Critical Notified By: CP.PH; O2 Tension (PaO2), arterial 93.1 mmHg (80.0-100.0); Potassium - ABG Lab 3.6 mmol/L (3.70-5.30); Puncture Site LRA; pH, Arterial 7.38 (7.35-7.45)
[2022-05-21] MEDS ORDERED: Pantoprazole 40 MG VIAL ONE (08:44)
[2022-05-21] MEDS: Pantoprazole 40 MG VIAL IVP SCH (08:58)
[2022-05-21] MEDS: Meropenem 500 MG in Sodium Chloride 0.9% 100 ML IVPB SCH ×2 (08:58→19:46)
[2022-05-21] MEDS: Nicotine 14 MG PATCH TD SCH (08:58)
[2022-05-21] MEDS: Thiamine HCl 200 MG/2 ML VIAL SLOW IVP SCH ×2 (08:59→19:46)
[2022-05-21] MEDS ORDERED: Enoxaparin Sodium 30 MG/0.3 ML SYRINGE SC SCH (09:00)
[2022-05-21] MEDS ORDERED: Lantus 1000 UNITS/10 ML VIAL SC SCH (10:15)
[2022-05-21] MEDS ORDERED: Lactated Ringer's 500 ML IV SCH (10:15)
[2022-05-21] MEDS: fentaNYL Citrate-0.9 % NaCl/PF 100 ML IVPB SCH ×2 (11:48→21:16)
[2022-05-21] MEDS: Heparin 5,000 UNITS/ML VIAL SC SCH ×2 (16:05→19:46)
[2022-05-21] MEDS: Lantus 1000 UNITS/10 ML VIAL SC SCH (19:48)
[2022-05-21] MEDS ORDERED: Vancomycin HCl 750 MG in Dextrose 5% in Water 250 ML IVPB SCH (21:00)
[2022-05-21] MEDS: Lactated Ringer's 1,000 ML IV SCH (21:04)
[2022-05-22] MEDS: HumaLOG 300 UNITS/3 ML VIAL SC PRN ×6 (00:01→20:06)
[2022-05-22 03:52] LABS: Hemoglobin 7.5 g/dL (12.0-15.5); Mean Corpuscular HGB CONC 34.4 g/dL (32.0-36.0); Mean Corpuscular Volume 87.2 fl (81.6-98.3); Mean Platelet Volume 12.3 fl (7.4-10.4); Platelet Count 70 10x3/uL (150-450); RBC Distribution Width 15.7 % (11.5-14.5); White Blood Cell (WBC) Count 25.9 10x3/uL (3.5-10.5)
[2022-05-22 04:09] LABS: MDiff Complete? YES
[2022-05-22 04:11] LABS: ALT (SGPT) 8 U/L (8-55); AST (SGOT) 16 U/L (5-34); Albumin 1.9 g/dL (3.5-5.0); Alkaline Phosphatase 174 U/L (40-110); Anion Gap 13 mmol/L (10-20); BUN (Urea Nitrogen) 38 mg/dL (7.0-18.7); Bilirubin, Total 0.1 mg/dL (0.2-1.2); Calc. Creatinine Clearance 32 mL/min (70-130); Calcium 7.6 mg/dL (7.8-10.44); Carbon Dioxide 20 mmol/L (22-29); Chloride 104 mmol/L (98-107); Estimated GFR 32; Globulin 3.3 g/dL (2.4-3.5); Glucose 311 mg/dL (70-105); Protein, Total 5.2 g/dL (6.0-8.3); Sodium 133 mmol/L (136-145)
[2022-05-22 04:15] LABS: Band 7 % (5-11); Lymphocytes 6 % (21-51); Metamyelocyte 3 % (0-0); Monocytes 3 % (0-10); Neutrophil 81 % (42-75)
[2022-05-22 04:16] LABS: Platelet Morphology Comment Appears Decreased; RBC Morphology Normal
[2022-05-22 04:33] LABS: Base Excess (BEa) -5.2 mEq/L (-2.0 to +3.0); Calcium, Ionized (arterial) 1.18 mmol/L (1.12-1.30); Carboxyhemoglobin (COHb) 0.6 gm% (0.0-3.0); Critical Notified By: CP.PH; Hemoglobin (Hb) 9.8 g/dL (12.0-16.0); Potassium - ABG Lab 3.8 mmol/L (3.70-5.30); Puncture Site RRA; RapidComm Collect By CP.PH; pH, Arterial 7.39 (7.35-7.45)
[2022-05-22] MEDS: Lactated Ringer's 1,000 ML IV SCH (05:11)
[2022-05-22] MEDS: NOREPINEPHRINE 8 MG/250 ML-D5W 250 ML IVPB SCH (05:32)
[2022-05-22] MEDS: Propofol 1,000 MG/100 ML VIAL IV PRN ×2 (05:33→20:25)
[2022-05-22] MEDS ORDERED: Polyethylene Glycol 3350 17 GM Packet PO PRN (07:45)
[2022-05-22] MEDS: Furosemide 40 MG/4 ML VIAL SLOW IVP SCH ×2 (08:43→19:56)
[2022-05-22] MEDS: Lantus 1000 UNITS/10 ML VIAL SC SCH ×2 (08:44→20:02)
[2022-05-22] MEDS: Meropenem 500 MG in Sodium Chloride 0.9% 100 ML IVPB SCH ×2 (08:55→20:03)
[2022-05-22] MEDS: methylPREDNISolone Sod Succ 40 MG VIAL IVP SCH (08:57)
[2022-05-22] MEDS: Nicotine 14 MG PATCH TD SCH ×2 (08:59→09:04)
[2022-05-22] MEDS: Pantoprazole 40 MG VIAL IVP SCH (09:03)
[2022-05-22] MEDS: Senokot S 8.6-50 MG TAB PO SCH ×2 (09:04→20:05)
[2022-05-22] MEDS: Thiamine HCl 200 MG/2 ML VIAL SLOW IVP SCH ×2 (09:37→20:05)
[2022-05-22] MEDS: Acetaminophen 325 MG TAB PO PRN (09:43)
[2022-05-22] MEDS ORDERED: Nicotine 21 MG PATCH TD SCH (11:00)
[2022-05-22] MEDS: Lorazepam 2 MG/ML VIAL SLOW IVP PRN ×2 (11:12→22:31)
[2022-05-22] MEDS: fentaNYL Citrate-0.9 % NaCl/PF 100 ML IVPB SCH (12:18)
[2022-05-22] MEDS: Metoclopramide HCl 10 MG/2 ML VIAL IVP SCH ×2 (16:24→20:04)
[2022-05-22 23:23] LABS: Vancomycin, Trough 21.5 ug/mL
[2022-05-23] MEDS: VANCOMYCIN HCL IVPB SCH ×2 (00:23→23:17)
[2022-05-23] MEDS: DEXTROSE 5% IVPB SCH ×2 (00:23→23:17)
[2022-05-23] MEDS: WATER IVPB SCH ×2 (00:23→23:17)
[2022-05-23] MEDS: fentaNYL Citrate-0.9 % NaCl/PF 100 ML IVPB SCH ×2 (00:26→15:33)
[2022-05-23] MEDS: HumaLOG 300 UNITS/3 ML VIAL SC PRN ×6 (00:27→21:14)
[2022-05-23] MEDS: Propofol 1,000 MG/100 ML VIAL IV PRN ×4 (03:02→19:30)
[2022-05-23 04:15] LABS: Hemoglobin 6.8 g/dL (12.0-15.5); Mean Corpuscular HGB CONC 34.9 g/dL (32.0-36.0); Mean Corpuscular Hemoglobin 30.1 pg (27.0-33.0); Mean Corpuscular Volume 86.3 fl (81.6-98.3); Mean Platelet Volume 12.8 fl (7.4-10.4); RBC Distribution Width 15.1 % (11.5-14.5); Red Blood Cell (RBC) Count 2.26 10x6/uL (3.90-5.03); White Blood Cell (WBC) Count 26.8 10x3/uL (3.5-10.5)
[2022-05-23 04:16] LABS: Platelet Count 77 10x3/uL (150-450)
[2022-05-23 04:17] LABS: Anion Gap 14 mmol/L (10-20); BUN (Urea Nitrogen) 46 mg/dL (7.0-18.7); Calc. Creatinine Clearance 30 mL/min (70-130); Calcium 7.6 mg/dL (7.8-10.44); Carbon Dioxide 21 mmol/L (22-29); Chloride 100 mmol/L (98-107); Estimated GFR 30; Glucose 444 mg/dL (70-105); Potassium 4.4 mmol/L (3.5-5.1); Sodium 131 mmol/L (136-145)
[2022-05-23] MEDS: Lorazepam 2 MG/ML VIAL SLOW IVP PRN ×2 (04:17→21:19)
[2022-05-23 04:35] LABS: MDiff Complete? YES
[2022-05-23 04:37] LABS: Band 8 % (5-11); Lymphocytes 5 % (21-51); Metamyelocyte 2 % (0-0); Monocytes 3 % (0-10); Myelocyte 1 % (0-0); Neutrophil 81 % (42-75); Platelet Morphology Comment Appears Decreased
[2022-05-23 04:38] LABS: RBC Morphology Normal
[2022-05-23 05:18] LABS: Base Excess (BEa) -4.9 mEq/L (-2.0 to +3.0); CO2 Tension 36.1 mmHg (35.0-45.0); Calcium, Ionized (arterial) 1.13 mmol/L (1.12-1.30); Critical Notified By: CP.PH; Hemoglobin (Hb) 7.9 g/dL (12.0-16.0); O2 Tension (PaO2), arterial 91.2 mmHg (80.0-100.0); Puncture Site RRA; RapidComm Collect By CP.PH; pH, Arterial 7.36 (7.35-7.45)
[2022-05-23 08:41] LABS: Glucose 456 mg/dL (70-105)
[2022-05-23] MEDS: Pantoprazole 40 MG VIAL IVP SCH (09:03)
[2022-05-23] MEDS: methylPREDNISolone Sod Succ 40 MG VIAL IVP SCH (09:03)
[2022-05-23] MEDS: Meropenem 500 MG in Sodium Chloride 0.9% 100 ML IVPB SCH ×2 (09:03→21:12)
[2022-05-23] MEDS: Nicotine 21 MG PATCH TD SCH (09:03)
[2022-05-23] MEDS: Metoclopramide HCl 10 MG/2 ML VIAL IVP SCH ×4 (09:17→21:13)
[2022-05-23] MEDS: Furosemide 40 MG/4 ML VIAL SLOW IVP SCH ×3 (09:17→21:10)
[2022-05-23] MEDS: Lantus 1000 UNITS/10 ML VIAL SC SCH (09:18)
[2022-05-23] MEDS: Thiamine HCl 200 MG/2 ML VIAL SLOW IVP SCH ×2 (09:34→21:13)
[2022-05-23] MEDS: Senokot S 8.6-50 MG TAB PO SCH ×2 (09:42→20:50)
[2022-05-23 12:26] LABS: Glucose 518 mg/dL (70-105)
[2022-05-23] MEDS ORDERED: Succinylcholine 200 MG/10 ml SYRINGE FS ONE (14:30)
[2022-05-23] MEDS: Lactated Ringer's 1,000 ML IV SCH (19:55)
[2022-05-23] MEDS ORDERED: Lantus 1000 UNITS/10 ML VIAL SC SCH (21:00)
[2022-05-24] MEDS: HumaLOG 300 UNITS/3 ML VIAL SC PRN ×6 (00:07→21:29)
[2022-05-24] MEDS: Propofol 1,000 MG/100 ML VIAL IV PRN ×4 (01:20→17:49)
[2022-05-24] MEDS: fentaNYL Citrate-0.9 % NaCl/PF 100 ML IVPB SCH ×2 (01:21→14:47)
[2022-05-24 04:15] LABS: Hemoglobin 8.5 g/dL (12.0-15.5); Mean Corpuscular HGB CONC 35.6 g/dL (32.0-36.0); Mean Corpuscular Hemoglobin 29.8 pg (27.0-33.0); Mean Corpuscular Volume 83.9 fl (81.6-98.3); RBC Distribution Width 15.6 % (11.5-14.5); Red Blood Cell (RBC) Count 2.85 10x6/uL (3.90-5.03); White Blood Cell (WBC) Count 30.3 10x3/uL (3.5-10.5)
[2022-05-24 04:16] LABS: Platelet Count 97 10x3/uL (150-450)
[2022-05-24 04:27] LABS: MDiff Complete? YES
[2022-05-24 04:29] LABS: Anion Gap 16 mmol/L (10-20); BUN (Urea Nitrogen) 54 mg/dL (7.0-18.7); Band 1 % (5-11); Calc. Creatinine Clearance 30 mL/min (70-130); Calcium 7.8 mg/dL (7.8-10.44); Carbon Dioxide 21 mmol/L (22-29); Chloride 97 mmol/L (98-107); Estimated GFR 29; Glucose 323 mg/dL (70-105); Lymphocytes 8 % (21-51); Metamyelocyte 1 % (0-0); Monocytes 8 % (0-10); Myelocyte 2 % (0-0); Neutrophil 80 % (42-75); Potassium 3.7 mmol/L (3.5-5.1); Sodium 130 mmol/L (136-145)
[2022-05-24 04:30] LABS: Platelet Morphology Comment Appears Decreased
[2022-05-24 04:31] LABS: RBC Morphology Normal
[2022-05-24 07:41] LABS: ALV-art Gradient 230.375 mmHg (0-20); Actual Bicarbonate (HCO3a) 19.8 mEq/L (22-28); Base Excess (BEa) -4.5 mEq/L (-2.0 to +3.0); CO2 Tension 33.3 mmHg (35.0-45.0); Calcium, Ionized (arterial) 1.12 mmol/L (1.12-1.30); Carboxyhemoglobin (COHb) 0.3 gm% (0.0-3.0); Hemoglobin (Hb) 9.4 g/dL (12.0-16.0); O2 Tension (PaO2), arterial 84.5 mmHg (80.0-100.0); Potassium - ABG Lab 3.7 mmol/L (3.70-5.30); Puncture Site LRA; pH, Arterial 7.39 (7.35-7.45)
[2022-05-24] MEDS: Furosemide 40 MG/4 ML VIAL SLOW IVP SCH ×3 (08:56→20:52)
[2022-05-24] MEDS: NPH, Human Insulin Isophane 300 UNIT/3 ML VIAL SC SCH ×3 (08:56→21:28)
[2022-05-24] MEDS ORDERED: Potassium Chloride 10 MEQ in Premix Bag 1 BAG IVPB SCH (09:00)
[2022-05-24] MEDS: methylPREDNISolone Sod Succ 40 MG VIAL IVP SCH (09:01)
[2022-05-24] MEDS: Pantoprazole 40 MG VIAL IVP SCH (09:02)
[2022-05-24] MEDS: Metoclopramide HCl 10 MG/2 ML VIAL IVP SCH ×4 (09:02→20:52)
[2022-05-24] MEDS: Meropenem 500 MG in Sodium Chloride 0.9% 100 ML IVPB SCH ×2 (09:02→20:51)
[2022-05-24] MEDS: Thiamine HCl 200 MG/2 ML VIAL SLOW IVP SCH ×2 (09:02→20:54)
[2022-05-24] MEDS: Nicotine 21 MG PATCH TD SCH (09:03)
[2022-05-24] MEDS: Senokot S 8.6-50 MG TAB PO SCH ×2 (09:27→20:54)
[2022-05-24] MEDS: Lorazepam 2 MG/ML VIAL SLOW IVP PRN (14:59)
[2022-05-24 23:32] LABS: Vancomycin, Trough 19.4 ug/mL
[2022-05-25] MEDS: WATER IVPB SCH (00:41)
[2022-05-25] MEDS: HumaLOG 300 UNITS/3 ML VIAL SC PRN ×5 (00:41→20:53)
[2022-05-25] MEDS: VANCOMYCIN HCL IVPB SCH (00:41)
[2022-05-25] MEDS: DEXTROSE 5% IVPB SCH (00:41)
[2022-05-25] MEDS: NPH, Human Insulin Isophane 300 UNIT/3 ML VIAL SC SCH ×3 (01:29→16:57)
[2022-05-25] MEDS: Propofol 1,000 MG/100 ML VIAL IV PRN ×3 (01:30→11:34)
[2022-05-25] MEDS: fentaNYL Citrate-0.9 % NaCl/PF 100 ML IVPB SCH ×2 (04:12→17:41)
[2022-05-25] MEDS: Lorazepam 2 MG/ML VIAL SLOW IVP PRN ×4 (04:13→18:25)
[2022-05-25 04:18] LABS: Hemoglobin 8.3 g/dL (12.0-15.5); Mean Corpuscular HGB CONC 34.3 g/dL (32.0-36.0); Mean Corpuscular Hemoglobin 29.2 pg (27.0-33.0); Mean Corpuscular Volume 85.2 fl (81.6-98.3); Mean Platelet Volume 11.1 fl (7.4-10.4); RBC Distribution Width 14.7 % (11.5-14.5); Red Blood Cell (RBC) Count 2.84 10x6/uL (3.90-5.03); White Blood Cell (WBC) Count 25.9 10x3/uL (3.5-10.5)
[2022-05-25 04:24] LABS: Anion Gap 16 mmol/L (10-20); BUN (Urea Nitrogen) 58 mg/dL (7.0-18.7); Calc. Creatinine Clearance 34 mL/min (70-130); Calcium 8.3 mg/dL (7.8-10.44); Carbon Dioxide 25 mmol/L (22-29); Chloride 99 mmol/L (98-107); Estimated GFR 34; Glucose 197 mg/dL (70-105); Potassium 3.4 mmol/L (3.5-5.1); Sodium 137 mmol/L (136-145)
[2022-05-25 04:25] LABS: Platelet Count 114 10x3/uL (150-450)
[2022-05-25 04:57] LABS: MDiff Complete? YES
[2022-05-25] MEDS ORDERED: Potassium Chloride 20 MEQ TAB PO SCH (05:30)
[2022-05-25] MEDS ORDERED: Potassium Bicarbonate/Cit Ac 20 MEQ TAB PER TUBE SCH (05:45)
[2022-05-25 05:58] LABS: Actual Bicarbonate (HCO3a) 27.2 mEq/L (22-28); CO2 Tension 39.8 mmHg (35.0-45.0); Calcium, Ionized (arterial) 1.17 mmol/L (1.12-1.30); Carboxyhemoglobin (COHb) 0.6 gm% (0.0-3.0); O2 Tension (PaO2), arterial 125.8 mmHg (80.0-100.0); Potassium - ABG Lab 3.1 mmol/L (3.70-5.30); Puncture Site RRA; pH, Arterial 7.45 (7.35-7.45)
[2022-05-25 06:05] LABS: Band 11 % (5-11); Eosinophils 1 % (0-10); Lymphocytes 13 % (21-51); Metamyelocyte 1 % (0-0); Monocytes 7 % (0-10); Neutrophil 67 % (42-75)
[2022-05-25 06:07] LABS: Hypochromia SLIGHT = 6-15 cells (100X) (0-5/hpf); Platelet Morphology Comment Appears Decreased
[2022-05-25] MEDS: Senokot S 8.6-50 MG TAB PO SCH ×2 (09:06→20:42)
[2022-05-25] MEDS: Thiamine HCl 200 MG/2 ML VIAL SLOW IVP SCH ×2 (09:06→20:56)
[2022-05-25] MEDS: Pantoprazole 40 MG VIAL IVP SCH (09:06)
[2022-05-25] MEDS: Meropenem 500 MG in Sodium Chloride 0.9% 100 ML IVPB SCH ×2 (09:07→20:55)
[2022-05-25] MEDS: Nicotine 21 MG PATCH TD SCH (09:07)
[2022-05-25] MEDS: Metoclopramide HCl 10 MG/2 ML VIAL IVP SCH ×4 (09:07→20:56)
[2022-05-25] MEDS: methylPREDNISolone Sod Succ 40 MG VIAL IVP SCH (09:57)
[2022-05-25] MEDS ORDERED: Enoxaparin Sodium 30 MG/0.3 ML SYRINGE ONE (20:54)
[2022-05-25] MEDS: Enoxaparin Sodium 30 MG/0.3 ML SYRINGE SC SCH (20:55)
[2022-05-25] MEDS ORDERED: Lantus 1000 UNITS/10 ML VIAL SC SCH (21:00)
[2022-05-26] MEDS: HumaLOG 300 UNITS/3 ML VIAL SC PRN ×5 (00:18→20:39)
[2022-05-26] MEDS: DEXTROSE 5% IVPB SCH (00:19)
[2022-05-26] MEDS: VANCOMYCIN HCL IVPB SCH (00:19)
[2022-05-26] MEDS: WATER IVPB SCH (00:19)
[2022-05-26] MEDS: Propofol 1,000 MG/100 ML VIAL IV PRN ×3 (03:51→16:13)
[2022-05-26 04:57] LABS: Hemoglobin 7.8 g/dL (12.0-15.5); Mean Corpuscular HGB CONC 33.2 g/dL (32.0-36.0); Mean Corpuscular Hemoglobin 29.3 pg (27.0-33.0); Mean Corpuscular Volume 88.3 fl (81.6-98.3); Mean Platelet Volume 10.9 fl (7.4-10.4); Platelet Count 127 10x3/uL (150-450); RBC Distribution Width 14.2 % (11.5-14.5); Red Blood Cell (RBC) Count 2.66 10x6/uL (3.90-5.03); White Blood Cell (WBC) Count 23.4 10x3/uL (3.5-10.5)
[2022-05-26 05:06] LABS: Anion Gap 16 mmol/L (10-20); BUN (Urea Nitrogen) 51 mg/dL (7.0-18.7); Calc. Creatinine Clearance 42 mL/min (70-130); Calcium 8.6 mg/dL (7.8-10.44); Carbon Dioxide 27 mmol/L (22-29); Chloride 99 mmol/L (98-107); Estimated GFR 44; Glucose 232 mg/dL (70-105); Potassium 3.9 mmol/L (3.5-5.1); Sodium 138 mmol/L (136-145)
[2022-05-26 05:12] LABS: MDiff Complete? YES
[2022-05-26 06:12] LABS: Hypochromia SLIGHT = 6-15 cells (100X) (0-5/hpf); Platelet Morphology Comment Appears Decreased
[2022-05-26 06:15] LABS: Band 6 % (5-11); Lymphocytes 13 % (21-51); Metamyelocyte 2 % (0-0); Monocytes 9 % (0-10); Myelocyte 1 % (0-0); Neutrophil 69 % (42-75)
[2022-05-26] MEDS: Metoclopramide HCl 10 MG/2 ML VIAL IVP SCH ×4 (08:28→20:43)
[2022-05-26] MEDS: Lantus 1000 UNITS/10 ML VIAL SC SCH ×2 (08:29→20:40)
[2022-05-26] MEDS: Lorazepam 2 MG/ML VIAL SLOW IVP PRN (08:34)
[2022-05-26] MEDS: Meropenem 1 GM in Sodium Chloride 0.9% 100 ML IVPB SCH ×2 (08:36→20:41)
[2022-05-26] MEDS: Thiamine HCl 200 MG/2 ML VIAL SLOW IVP SCH ×2 (08:37→20:43)
[2022-05-26] MEDS: Pantoprazole 40 MG VIAL IVP SCH ×2 (08:37→08:53)
[2022-05-26] MEDS: methylPREDNISolone Sod Succ 40 MG VIAL IVP SCH (08:51)
[2022-05-26] MEDS: Nicotine 21 MG PATCH TD SCH (08:52)
[2022-05-26] MEDS: Senokot S 8.6-50 MG TAB PO SCH ×2 (08:57→20:46)
[2022-05-26] MEDS: fentaNYL Citrate-0.9 % NaCl/PF 100 ML IVPB SCH ×2 (09:20→22:20)
[2022-05-26] MEDS ORDERED: Furosemide 40 MG/4 ML VIAL SLOW IVP SCH (10:30)
[2022-05-26] MEDS: Furosemide 40 MG/4 ML VIAL SLOW IVP SCH (14:43)
[2022-05-26] MEDS: Enoxaparin Sodium 30 MG/0.3 ML SYRINGE SC SCH (20:41)
[2022-05-26 23:14] LABS: Vancomycin, Trough 17.7 ug/mL
[2022-05-27] MEDS: Propofol 1,000 MG/100 ML VIAL IV PRN ×2 (00:12→05:41)
[2022-05-27] MEDS: VANCOMYCIN HCL IVPB SCH (00:21)
[2022-05-27] MEDS: WATER IVPB SCH (00:21)
[2022-05-27] MEDS: DEXTROSE 5% IVPB SCH (00:21)
[2022-05-27] MEDS: HumaLOG 300 UNITS/3 ML VIAL SC PRN ×2 (00:21→17:16)
[2022-05-27 04:32] LABS: Hemoglobin 7.5 g/dL (12.0-15.5); Mean Corpuscular HGB CONC 33.2 g/dL (32.0-36.0); Mean Corpuscular Hemoglobin 29.4 pg (27.0-33.0); Mean Corpuscular Volume 88.6 fl (81.6-98.3); Mean Platelet Volume 10.5 fl (7.4-10.4); Platelet Count 188 10x3/uL (150-450); RBC Distribution Width 13.7 % (11.5-14.5); Red Blood Cell (RBC) Count 2.55 10x6/uL (3.90-5.03)
[2022-05-27 04:43] LABS: MDiff Complete? YES
[2022-05-27 04:55] LABS: Anion Gap 15 mmol/L (10-20); BUN (Urea Nitrogen) 50 mg/dL (7.0-18.7); Calc. Creatinine Clearance 46 mL/min (70-130); Calcium 8.7 mg/dL (7.8-10.44); Carbon Dioxide 30 mmol/L (22-29); Chloride 98 mmol/L (98-107); Estimated GFR 49; Glucose 101 mg/dL (70-105); Potassium 3.9 mmol/L (3.5-5.1); Sodium 139 mmol/L (136-145)
[2022-05-27 05:10] LABS: Band 5 % (5-11); Lymphocytes 13 % (21-51); Metamyelocyte 2 % (0-0); Monocytes 5 % (0-10); Myelocyte 2 % (0-0); Neutrophil 73 % (42-75)
[2022-05-27 05:11] LABS: Hypochromia MODERATE=16-30 cells (100X) (0-5/hpf)
[2022-05-27 05:12] LABS: Platelet Morphology Comment Appears Adequate
[2022-05-27] MEDS: Lorazepam 2 MG/ML VIAL SLOW IVP PRN (05:39)
[2022-05-27] MEDS: Furosemide 40 MG/4 ML VIAL SLOW IVP SCH ×2 (05:39→13:08)
[2022-05-27] MEDS: Metoclopramide HCl 10 MG/2 ML VIAL IVP SCH ×4 (08:31→20:32)
[2022-05-27] MEDS: Thiamine HCl 200 MG/2 ML VIAL SLOW IVP SCH ×2 (08:31→20:32)
[2022-05-27] MEDS: Pantoprazole 40 MG VIAL IVP SCH (08:32)
[2022-05-27] MEDS: Meropenem 1 GM in Sodium Chloride 0.9% 100 ML IVPB SCH ×2 (08:32→20:32)
[2022-05-27] MEDS: methylPREDNISolone Sod Succ 40 MG VIAL IVP SCH (08:32)
[2022-05-27] MEDS: Nicotine 21 MG PATCH TD SCH (08:33)
[2022-05-27] MEDS: Dextrose 50% Abboject 50 ML SYRINGE SLOW IVP PRN ×2 (08:44→20:31)
[2022-05-27] MEDS: Senokot S 8.6-50 MG TAB PO SCH ×2 (10:51→20:19)
[2022-05-27] MEDS: Racepinephrine 2.25% 0.5 ML NEB NEB PRN ×2 (14:41→18:52)
[2022-05-27] MEDS ORDERED: Lorazepam 2 MG/ML VIAL SLOW IVP PRN (17:12)
[2022-05-27] MEDS ORDERED: Dexmedetomidine In 0.9 % NaCl 100 ML IVPB SCH (17:15)
[2022-05-27] MEDS: fentaNYL 50 mcg/hour Patch TD SCH (17:32)
[2022-05-27] MEDS: Enoxaparin Sodium 40 MG/0.4 ML SYRINGE SC SCH (20:32)
[2022-05-27] MEDS ORDERED: Dextrose 50% Abboject 50 ML SYRINGE SLOW IVP PRN (20:36)
[2022-05-27] MEDS: Lantus 1000 UNITS/10 ML VIAL SC SCH (20:54)
[2022-05-27] MEDS ORDERED: Lantus 1000 UNITS/10 ML VIAL SC SCH ×2 (21:00)
[2022-05-27] MEDS: Dextrose 5% in Water 1,000 ML IV SCH (21:04)
[2022-05-27] MEDS ORDERED: Albuterol Sulfate 2.5 mg/3 ml Neb NEB PRN (23:52)
[2022-05-28] MEDS: WATER IVPB SCH (00:32)
[2022-05-28] MEDS: VANCOMYCIN HCL IVPB SCH (00:32)
[2022-05-28] MEDS: DEXTROSE 5% IVPB SCH (00:32)
[2022-05-28 03:42] LABS: Hemoglobin 7.9 g/dL (12.0-15.5); Mean Corpuscular HGB CONC 33.1 g/dL (32.0-36.0); Mean Corpuscular Hemoglobin 29.2 pg (27.0-33.0); Mean Corpuscular Volume 88.2 fl (81.6-98.3); Platelet Count 251 10x3/uL (150-450); RBC Distribution Width 13.4 % (11.5-14.5); Red Blood Cell (RBC) Count 2.71 10x6/uL (3.90-5.03); White Blood Cell (WBC) Count 21.4 10x3/uL (3.5-10.5)
[2022-05-28 03:51] LABS: MDiff Complete? YES
[2022-05-28 04:06] LABS: Anion Gap 14 mmol/L (10-20); BUN (Urea Nitrogen) 39 mg/dL (7.0-18.7); Calc. Creatinine Clearance 50 mL/min (70-130); Calcium 8.5 mg/dL (7.8-10.44); Carbon Dioxide 32 mmol/L (22-29); Chloride 95 mmol/L (98-107); Estimated GFR 54; Glucose 168 mg/dL (70-105); Potassium 3.5 mmol/L (3.5-5.1); Sodium 137 mmol/L (136-145)
[2022-05-28 04:15] LABS: Band 2 % (5-11); Eosinophils 5 % (0-10); Lymphocytes 10 % (21-51); Metamyelocyte 2 % (0-0); Monocytes 10 % (0-10); Myelocyte 3 % (0-0); Neutrophil 68 % (42-75)
[2022-05-28] MEDS ORDERED: Potassium Chloride 20 MEQ TAB PO SCH (04:30)
[2022-05-28] MEDS: Potassium Chloride 20 MEQ in Premix Bag 1 BAG IVPB SCH ×2 (06:02→08:20)
[2022-05-28] MEDS: Furosemide 40 MG/4 ML VIAL SLOW IVP SCH ×2 (06:02→13:12)
[2022-05-28] MEDS: HumaLOG 300 UNITS/3 ML VIAL SC PRN ×4 (08:08→20:46)
[2022-05-28] MEDS: Metoclopramide HCl 10 MG/2 ML VIAL IVP SCH (08:19)
[2022-05-28] MEDS: Thiamine HCl 200 MG/2 ML VIAL SLOW IVP SCH ×2 (08:19→20:18)
[2022-05-28] MEDS: Nicotine 21 MG PATCH TD SCH (08:19)
[2022-05-28] MEDS: Meropenem 1 GM in Sodium Chloride 0.9% 100 ML IVPB SCH ×2 (08:21→20:39)
[2022-05-28] MEDS: Pantoprazole 40 MG VIAL IVP SCH (08:21)
[2022-05-28] MEDS ORDERED: methylPREDNISolone Sod Succ 40 MG VIAL IVP SCH (09:00)
[2022-05-28] MEDS ORDERED: AA 4.25 %/CALCIUM/LYTES/D5W 2,000 ML IV SCH (12:00)
[2022-05-28] MEDS: D5W-AA 4.25% with LYTES 1,000 ML IV SCH (12:43)
[2022-05-28] MEDS: Escitalopram Oxalate 10 mg Tablet PO SCH (20:18)
[2022-05-28] MEDS: Enoxaparin Sodium 40 MG/0.4 ML SYRINGE SC SCH (20:19)
[2022-05-29] MEDS: DEXTROSE 5% IVPB SCH (00:46)
[2022-05-29] MEDS: WATER IVPB SCH (00:46)
[2022-05-29] MEDS: VANCOMYCIN HCL IVPB SCH (00:46)
[2022-05-29] MEDS: HumaLOG 300 UNITS/3 ML VIAL SC PRN ×6 (00:47→20:42)
[2022-05-29] MEDS: D5W-AA 4.25% with LYTES 1,000 ML IV SCH ×2 (02:21→17:53)
[2022-05-29 04:22] LABS: #Basophils 0.2 10x3/uL (0.0-0.2); #Eosinphils 1.7 10x3/uL (0.0-0.5); #Monocytes 1.2 10x3/uL (0.0-1.1); #Neutrophils 10.6 10x3/uL (1.5-8.4); %Basophils 0.9 % (0.0-2.0); %Eosinophils 9.6 % (0.0-6.0); %Lymphocytes 16.6 % (18.0-47.0); %Monocytes 7.1 % (0.0-10.0); %Neutrophils 61.4 % (40.0-75.0); Hemoglobin 7.9 g/dL (12.0-15.5); Mean Corpuscular HGB CONC 33.3 g/dL (32.0-36.0); Mean Corpuscular Hemoglobin 29.2 pg (27.0-33.0); Mean Corpuscular Volume 87.5 fl (81.6-98.3); Mean Platelet Volume 10.2 fl (7.4-10.4); Platelet Count 300 10x3/uL (150-450); RBC Distribution Width 13.1 % (11.5-14.5); Red Blood Cell (RBC) Count 2.71 10x6/uL (3.90-5.03); White Blood Cell (WBC) Count 17.3 10x3/uL (3.5-10.5)
[2022-05-29] MEDS: Furosemide 40 MG/4 ML VIAL SLOW IVP SCH (06:04)
[2022-05-29] MEDS ORDERED: Promethazine HCl 25 MG in Sodium Chloride 0.9% 50 ML IVPB PRN (08:54)
[2022-05-29] MEDS: Lantus 1000 UNITS/10 ML VIAL SC SCH (09:24)
[2022-05-29] MEDS: Nicotine 21 MG PATCH TD SCH (09:25)
[2022-05-29] MEDS: Thiamine HCl 200 MG/2 ML VIAL SLOW IVP SCH ×2 (09:27→20:44)
[2022-05-29] MEDS: Pantoprazole 40 MG VIAL IVP SCH (09:28)
[2022-05-29 09:51] LABS: Magnesium 1.7 mg/dL (1.6-2.6)
[2022-05-29] MEDS ORDERED: Magnesium 2 GM/50 ML(in water) 2 GM in Premix Bag 1 BAG IVPB SCH (12:00)
[2022-05-29] MEDS: Metoclopramide HCl 10 MG/2 ML VIAL IVP SCH ×2 (13:23→21:07)
[2022-05-29] MEDS: Dextrose 5% in Water 1,000 ML IV SCH (19:35)
[2022-05-29] MEDS: Senokot S 8.6-50 MG TAB PO SCH (19:35)
[2022-05-29] MEDS: Enoxaparin Sodium 40 MG/0.4 ML SYRINGE SC SCH (20:42)
[2022-05-29] MEDS: Escitalopram Oxalate 10 mg Tablet PO SCH (20:43)
[2022-05-30 04:25] LABS: #Basophils 0.2 10x3/uL (0.0-0.2); #Eosinphils 2.9 10x3/uL (0.0-0.5); #Monocytes 1.4 10x3/uL (0.0-1.1); #Neutrophils 9.4 10x3/uL (1.5-8.4); %Basophils 1.1 % (0.0-2.0); %Eosinophils 16.5 % (0.0-6.0); %Neutrophils 53.5 % (40.0-75.0); Hemoglobin 8.2 g/dL (12.0-15.5); Mean Corpuscular Hemoglobin 29.1 pg (27.0-33.0); Mean Corpuscular Volume 85.5 fl (81.6-98.3); Mean Platelet Volume 9.7 fl (7.4-10.4); Platelet Count 344 10x3/uL (150-450); RBC Distribution Width 12.7 % (11.5-14.5); Red Blood Cell (RBC) Count 2.82 10x6/uL (3.90-5.03); White Blood Cell (WBC) Count 17.7 10x3/uL (3.5-10.5)
[2022-05-30 04:37] LABS: ALT (SGPT) 6 U/L (8-55); AST (SGOT) 11 U/L (5-34); Albumin 2.5 g/dL (3.5-5.0); Alkaline Phosphatase 55 U/L (40-110); Anion Gap 15 mmol/L (10-20); BUN (Urea Nitrogen) 38 mg/dL (7.0-18.7); Bilirubin, Total 0.2 mg/dL (0.2-1.2); Calc. Creatinine Clearance 57 mL/min (70-130); Calcium 8.5 mg/dL (7.8-10.44); Carbon Dioxide 32 mmol/L (22-29); Chloride 91 mmol/L (98-107); Estimated GFR 64; Globulin 3.8 g/dL (2.4-3.5); Glucose 223 mg/dL (70-105); Magnesium 2.4 mg/dL (1.6-2.6); Potassium 3.8 mmol/L (3.5-5.1); Protein, Total 6.3 g/dL (6.0-8.3); Sodium 134 mmol/L (136-145)
[2022-05-30] MEDS: HumaLOG 300 UNITS/3 ML VIAL SC PRN ×6 (04:49→20:38)
[2022-05-30] MEDS: D5W-AA 4.25% with LYTES 1,000 ML IV SCH ×2 (05:12→22:28)
[2022-05-30] MEDS: Metoclopramide HCl 10 MG/2 ML VIAL IVP SCH ×3 (05:25→21:07)
[2022-05-30] MEDS: Nicotine 21 MG PATCH TD SCH (07:16)
[2022-05-30] MEDS: methylPREDNISolone Sod Succ 40 MG VIAL IVP SCH (07:17)
[2022-05-30] MEDS: Thiamine HCl 200 MG/2 ML VIAL SLOW IVP SCH ×2 (07:17→20:40)
[2022-05-30] MEDS: Lantus 1000 UNITS/10 ML VIAL SC SCH (08:18)
[2022-05-30] MEDS: Pantoprazole 40 MG VIAL IVP SCH (08:37)
[2022-05-30] MEDS ORDERED: Lantus 1000 UNITS/10 ML VIAL SC SCH (08:45)
[2022-05-30] MEDS ORDERED: Ketamine 50 MG/ML (10ML VIAL) ONE (16:08)
[2022-05-30] MEDS ORDERED: Oxymetazoline HCl 0.05% ( 15 ML ) ONE (16:11)
[2022-05-30] MEDS ORDERED: PROPOFOL 60 ML ONE (16:15)
[2022-05-30] MEDS ORDERED: Midazolam HCl 2 mg/2 ml Vial ONE (16:15)
[2022-05-30] MEDS ORDERED: Dexamethasone 20 MG/5 ML VIAL ONE (16:15)
[2022-05-30] MEDS ORDERED: Ondansetron PF 4 MG/2 ML Vial ONE (16:15)
[2022-05-30] MEDS ORDERED: Fentanyl 100 MCG/2 ML VIAL ONE (16:15)
[2022-05-30] MEDS ORDERED: Lidocaine 1% PF 5 ML VIAL ONE (16:16)
[2022-05-30] MEDS: fentaNYL 50 mcg/hour Patch TD SCH (16:17)
[2022-05-30] MEDS ORDERED: Lidocaine 2% 20 ml MDV ONE (16:24)
[2022-05-30] MEDS ORDERED: EPINEPHrine 1 MG/ML AMP ONE (16:24)
[2022-05-30] MEDS: Escitalopram Oxalate 10 mg Tablet PO SCH (20:40)
[2022-05-30] MEDS: Enoxaparin Sodium 40 MG/0.4 ML SYRINGE SC SCH (20:40)
[2022-05-31] MEDS: HumaLOG 300 UNITS/3 ML VIAL SC PRN ×6 (00:31→20:40)
[2022-05-31 03:39] LABS: #Basophils 0.1 10x3/uL (0.0-0.2); #Eosinphils 0.3 10x3/uL (0.0-0.5); #Monocytes 0.7 10x3/uL (0.0-1.1); #Neutrophils 10.4 10x3/uL (1.5-8.4); %Basophils 0.7 % (0.0-2.0); %Eosinophils 1.8 % (0.0-6.0); %Lymphocytes 14.6 % (18.0-47.0); %Monocytes 5.2 % (0.0-10.0); %Neutrophils 73.8 % (40.0-75.0); Hemoglobin 8.4 g/dL (12.0-15.5); Mean Corpuscular HGB CONC 33.7 g/dL (32.0-36.0); Mean Corpuscular Hemoglobin 29.4 pg (27.0-33.0); Mean Corpuscular Volume 87.1 fl (81.6-98.3); Mean Platelet Volume 9.8 fl (7.4-10.4); Platelet Count 402 10x3/uL (150-450); RBC Distribution Width 12.7 % (11.5-14.5); Red Blood Cell (RBC) Count 2.86 10x6/uL (3.90-5.03); White Blood Cell (WBC) Count 14.1 10x3/uL (3.5-10.5)
[2022-05-31 03:58] LABS: ALT (SGPT) 7 U/L (8-55); AST (SGOT) 9 U/L (5-34); Albumin 2.7 g/dL (3.5-5.0); Alkaline Phosphatase 59 U/L (40-110); Anion Gap 15 mmol/L (10-20); BUN (Urea Nitrogen) 43 mg/dL (7.0-18.7); Bilirubin, Total 0.2 mg/dL (0.2-1.2); Calc. Creatinine Clearance 56 mL/min (70-130); Calcium 8.6 mg/dL (7.8-10.44); Carbon Dioxide 30 mmol/L (22-29); Chloride 92 mmol/L (98-107); Estimated GFR 62; Glucose 336 mg/dL (70-105); Potassium 4.7 mmol/L (3.5-5.1); Protein, Total 6.7 g/dL (6.0-8.3); Sodium 132 mmol/L (136-145)
[2022-05-31] MEDS: methylPREDNISolone Sod Succ 40 MG VIAL IVP SCH (08:14)
[2022-05-31] MEDS: Nicotine 21 MG PATCH TD SCH (08:15)
[2022-05-31] MEDS: Thiamine HCl 200 MG/2 ML VIAL SLOW IVP SCH ×2 (08:15→20:37)
[2022-05-31] MEDS: Pantoprazole 40 MG VIAL IVP SCH (08:15)
[2022-05-31] MEDS ORDERED: Lantus 1000 UNITS/10 ML VIAL SC SCH (09:00)
[2022-05-31] MEDS: D5W-AA 4.25% with LYTES 1,000 ML IV SCH (19:48)
[2022-05-31] MEDS: Enoxaparin Sodium 40 MG/0.4 ML SYRINGE SC SCH (20:39)
[2022-05-31] MEDS: Escitalopram Oxalate 10 mg Tablet PO SCH (20:39)
[2022-06-01 03:25] LABS: #Basophils 0.2 10x3/uL (0.0-0.2); #Eosinphils 1.7 10x3/uL (0.0-0.5); #Monocytes 1.3 10x3/uL (0.0-1.1); #Neutrophils 7.5 10x3/uL (1.5-8.4); %Basophils 0.9 % (0.0-2.0); %Eosinophils 10.7 % (0.0-6.0); %Lymphocytes 29.8 % (18.0-47.0); %Monocytes 8.4 % (0.0-10.0); %Neutrophils 47.3 % (40.0-75.0); Hemoglobin 7.6 g/dL (12.0-15.5); Mean Corpuscular HGB CONC 32.9 g/dL (32.0-36.0); Mean Corpuscular Hemoglobin 28.5 pg (27.0-33.0); Mean Corpuscular Volume 86.5 fl (81.6-98.3); Mean Platelet Volume 9.5 fl (7.4-10.4); Platelet Count 388 10x3/uL (150-450); RBC Distribution Width 12.9 % (11.5-14.5); Red Blood Cell (RBC) Count 2.67 10x6/uL (3.90-5.03); White Blood Cell (WBC) Count 15.8 10x3/uL (3.5-10.5)
[2022-06-01 03:40] LABS: ALT (SGPT) 10 U/L (8-55); AST (SGOT) 16 U/L (5-34); Albumin 2.6 g/dL (3.5-5.0); Alkaline Phosphatase 55 U/L (40-110); Anion Gap 15 mmol/L (10-20); BUN (Urea Nitrogen) 36 mg/dL (7.0-18.7); Bilirubin, Total 0.2 mg/dL (0.2-1.2); Calc. Creatinine Clearance 55 mL/min (70-130); Calcium 8.4 mg/dL (7.8-10.44); Carbon Dioxide 28 mmol/L (22-29); Chloride 97 mmol/L (98-107); Estimated GFR 60; Globulin 3.6 g/dL (2.4-3.5); Glucose 141 mg/dL (70-105); Potassium 4.5 mmol/L (3.5-5.1); Protein, Total 6.2 g/dL (6.0-8.3); Sodium 135 mmol/L (136-145)
[2022-06-01] MEDS: Pantoprazole 40 MG VIAL IVP SCH (08:09)
[2022-06-01] MEDS: Thiamine HCl 200 MG/2 ML VIAL SLOW IVP SCH (08:09)
[2022-06-01] MEDS: Nicotine 21 MG PATCH TD SCH (08:09)
[2022-06-01] MEDS: Lantus 1000 UNITS/10 ML VIAL SC SCH (08:11)
[2022-06-01] MEDS: HumaLOG 300 UNITS/3 ML VIAL SC PRN ×3 (08:12→17:12)
[2022-06-01] MEDS ORDERED: methylPREDNISolone Sod Succ 40 MG VIAL IVP SCH (09:00)
[2022-06-01] MEDS: Acetaminophen 325 MG TAB PO PRN (21:03)
[2022-06-01] MEDS: Escitalopram Oxalate 10 mg Tablet PO SCH (21:05)
[2022-06-01] MEDS: Enoxaparin Sodium 40 MG/0.4 ML SYRINGE SC SCH (21:05)
[2022-06-02 05:02] LABS: ALT (SGPT) 11 U/L (8-55); AST (SGOT) 16 U/L (5-34); Albumin 2.7 g/dL (3.5-5.0); Alkaline Phosphatase 56 U/L (40-110); Anion Gap 14 mmol/L (10-20); BUN (Urea Nitrogen) 26 mg/dL (7.0-18.7); Bilirubin, Total 0.2 mg/dL (0.2-1.2); Calc. Creatinine Clearance 59 mL/min (70-130); Calcium 8.5 mg/dL (7.8-10.44); Carbon Dioxide 26 mmol/L (22-29); Chloride 99 mmol/L (98-107); Estimated GFR 66; Globulin 3.7 g/dL (2.4-3.5); Glucose 171 mg/dL (70-105); Potassium 4.5 mmol/L (3.5-5.1); Protein, Total 6.4 g/dL (6.0-8.3); Sodium 134 mmol/L (136-145)
[2022-06-02 05:04] LABS: #Basophils 0.1 10x3/uL (0.0-0.2); #Eosinphils 1.3 10x3/uL (0.0-0.5); #Monocytes 1.2 10x3/uL (0.0-1.1); %Basophils 0.8 % (0.0-2.0); %Eosinophils 9.7 % (0.0-6.0); %Lymphocytes 32.4 % (18.0-47.0); %Monocytes 9.2 % (0.0-10.0); %Neutrophils 45.8 % (40.0-75.0); Hemoglobin 7.8 g/dL (12.0-15.5); Mean Corpuscular HGB CONC 33.5 g/dL (32.0-36.0); Mean Corpuscular Hemoglobin 29.1 pg (27.0-33.0); Mean Corpuscular Volume 86.9 fl (81.6-98.3); Mean Platelet Volume 9.8 fl (7.4-10.4); Platelet Count 457 10x3/uL (150-450); Red Blood Cell (RBC) Count 2.68 10x6/uL (3.90-5.03)
[2022-06-02] MEDS: Nicotine 21 MG PATCH TD SCH (09:09)
[2022-06-02] MEDS: Thiamine 100 MG TAB PO SCH (09:10)
[2022-06-02] MEDS: Lantus 1000 UNITS/10 ML VIAL SC SCH (09:10)
[2022-06-02] MEDS: Enoxaparin Sodium 40 MG/0.4 ML SYRINGE SC SCH (22:07)
[2022-06-02] MEDS: Escitalopram Oxalate 10 mg Tablet PO SCH (22:07)
[2022-06-03 04:54] LABS: #Basophils 0.1 10x3/uL (0.0-0.2); #Eosinphils 1.3 10x3/uL (0.0-0.5); #Monocytes 1.4 10x3/uL (0.0-1.1); #Neutrophils 5.6 10x3/uL (1.5-8.4); %Eosinophils 10.8 % (0.0-6.0); %Lymphocytes 27.9 % (18.0-47.0); %Neutrophils 46.5 % (40.0-75.0); Hemoglobin 8.4 g/dL (12.0-15.5); Mean Corpuscular HGB CONC 33.3 g/dL (32.0-36.0); Mean Corpuscular Hemoglobin 28.8 pg (27.0-33.0); Mean Corpuscular Volume 86.3 fl (81.6-98.3); Mean Platelet Volume 9.6 fl (7.4-10.4); Platelet Count 476 10x3/uL (150-450); Red Blood Cell (RBC) Count 2.92 10x6/uL (3.90-5.03)
[2022-06-03 05:06] LABS: ALT (SGPT) 12 U/L (8-55); AST (SGOT) 18 U/L (5-34); Albumin 2.9 g/dL (3.5-5.0); Alkaline Phosphatase 60 U/L (40-110); Anion Gap 14 mmol/L (10-20); BUN (Urea Nitrogen) 17 mg/dL (7.0-18.7); Bilirubin, Total 0.4 mg/dL (0.2-1.2); Calc. Creatinine Clearance 67 mL/min (70-130); Calcium 8.8 mg/dL (7.8-10.44); Carbon Dioxide 24 mmol/L (22-29); Chloride 101 mmol/L (98-107); Estimated GFR 77; Globulin 3.9 g/dL (2.4-3.5); Glucose 91 mg/dL (70-105); Potassium 4.3 mmol/L (3.5-5.1); Protein, Total 6.8 g/dL (6.0-8.3); Sodium 135 mmol/L (136-145)
[2022-06-03] MEDS: Nicotine 21 MG PATCH TD SCH (08:51)
[2022-06-03] MEDS: Thiamine 100 MG TAB PO SCH (08:51)
[2022-06-03] MEDS: Lantus 1000 UNITS/10 ML VIAL SC SCH (08:52)
[2022-06-03 12:00] VITALS: BP 110/65; TEMP 97.8
== END 2022-06-03 12:05 | disposition home or self-care (01) | DRG 870 ==
LOC: CSHERS 21:25 → CSHERHOLD 22:47 → CSHIMCU 05-15 09:30 → CSHTELE 06-01 14:18
PROVIDERS: ADMIT Family Medicine; ATTEND Internal Medicine
PROC: 02H633Z Insertion of Infusion Device into Right Atrium, Percutaneous Approach (ICD-10-PCS; principal; 2022-05-14)
PROC: B548ZZA Ultrasonography of Superior Vena Cava, Guidance (ICD-10-PCS; 2022-05-14)
PROC: 3E043XZ Introduction of Vasopressor into Central Vein, Percutaneous Approach (ICD-10-PCS; 2022-05-14)
PROC: 0T9B70Z Drainage of Bladder with Drainage Device, Via Natural or Artificial Opening (ICD-10-PCS; 2022-05-14)
PROC: 5A09457 Assistance with Respiratory Ventilation, 24-96 Consecutive Hours, Continuous Positive Airway Pressure (ICD-10-PCS; 2022-05-16)
PROC: 5A1955Z Respiratory Ventilation, Greater than 96 Consecutive Hours (ICD-10-PCS; 2022-05-18)
PROC: 0BH18EZ Insertion of Endotracheal Airway into Trachea, Via Natural or Artificial Opening Endoscopic (ICD-10-PCS; 2022-05-18)
PROC: 30233N1 Transfusion of Nonautologous Red Blood Cells into Peripheral Vein, Percutaneous Approach (ICD-10-PCS; 2022-05-19)
PROC: 0CBV8ZX Excision of Left Vocal Cord, Via Natural or Artificial Opening Endoscopic, Diagnostic (ICD-10-PCS; 2022-05-30)
PROC: 0CBT8ZX Excision of Right Vocal Cord, Via Natural or Artificial Opening Endoscopic, Diagnostic (ICD-10-PCS; 2022-05-30)
PROC: 0B9M8ZZ Drainage of Bilateral Lungs, Via Natural or Artificial Opening Endoscopic (ICD-10-PCS; 2022-05-30)
PROC: 0CBR8ZX Excision of Epiglottis, Via Natural or Artificial Opening Endoscopic, Diagnostic (ICD-10-PCS; 2022-05-30)
DX: A41.59 Other Gram-negative sepsis (principal); E10.10 Type 1 diabetes mellitus with ketoacidosis without coma; G93.41 Metabolic encephalopathy; J18.9 Pneumonia, unspecified organism; J80 Acute respiratory distress syndrome; N17.0 Acute kidney failure with tubular necrosis; R65.21 Severe sepsis with septic shock; I24.8 Other forms of acute ischemic heart disease; N12 Tubulo-interstitial nephritis, not specified as acute or chronic; E87.1 Hypo-osmolality and hyponatremia; J44.9 Chronic obstructive pulmonary disease, unspecified; F17.210 Nicotine dependence, cigarettes, uncomplicated; R68.0 Hypothermia, not associated with low environmental temperature; H54.7 Unspecified visual loss; R13.10 Dysphagia, unspecified; N18.30 Chronic kidney disease, stage 3 unspecified; Z20.822 Contact with and (suspected) exposure to COVID-19; I12.9 Hypertensive chronic kidney disease with stage 1 through stage 4 chronic kidney disease, or unspecified chronic kidney disease; D63.8 Anemia in other chronic diseases classified elsewhere; E10.22 Type 1 diabetes mellitus with diabetic chronic kidney disease
CPT/HCPCS: 36415; 36416; 36430; 36600; 51701; 70450; 71045; 71260; 74018; 74177; 80048; 80053; 80202; 80306; 80307; 81001; 81003; 81015; 81025; 82010; 82550; 82553; 82805; 83036; 83605; 83735; 83880; 83930; 84100; 84145; 84443; 84484; 85025; 85610; 85730; 86780; 86850; 86900; 86901; 87040; 87077; 87086; 87149; 87186; 87389; 87449; 87804; 88305; 88312; 93005; 93010; 93306; 94002; 94003; 94640; 94660; 94760; 96361; 96365; 96366; 96367; 96375; 99292; A4217; C9113; J0171; J0610; J0692; J0696; J1100; J1650; J1815; J1940; J1956; J2060; J2185; J2250; J2270; J2405; J2550; J2704; J2765; J2920; J3010; J3370; J3411; J3475; J3480; J3490; J7050; J7070; J7120; J7620; J7999; P9016; Q9967; U0002; U0003; U0005

== ENCOUNTER 2023-07-16 06:11 | Emergency (ER) | payer OTHER | END 2023-07-16 06:54 | disposition home or self-care (01) | LOC: CSHERS 06:11 | DX: G50.0 Trigeminal neuralgia (principal); E10.9 Type 1 diabetes mellitus without complications; I10 Essential (primary) hypertension; F17.210 Nicotine dependence, cigarettes, uncomplicated; Z79.4 Long term (current) use of insulin; Z79.899 Other long term (current) drug therapy | CPT/HCPCS: 99282 ==

== ENCOUNTER 2023-11-14 12:10 | Outpatient (CLI) | payer OTHER | END 2023-11-14 12:11 | disposition home or self-care (01) | LOC: CSHULT 12:10 | PROVIDERS: ATTEND Family Medicine | DX: B19.20 Unspecified viral hepatitis C without hepatic coma (principal) | CPT/HCPCS: 76705 ==